=== PATIENT | female | born 1970 | race Caucasian/White ===

== ENCOUNTER 2020-09-06 15:06 | Inpatient (IN) ==
[2020-09-06] MEDS ORDERED: *HR* OxyCODONE Immed Rel 5 MG TABLET PO PRN (22:51)
[2020-09-06] MEDS ORDERED: *HR* Dextrose 50 % in Water (Vial) 50 ML VIAL IVP PRN (23:00)
[2020-09-06] MEDS ORDERED: D5% in Water 1,000 ML IVC PRN (23:00)
[2020-09-06] MEDS ORDERED: Dextrose Gel 15 GM/37.5 ML TUBE PO PRN ×2 (23:00)
[2020-09-07] MEDS: *HR* Enoxaparin 40 MG/0.4 ML SYRINGE SQ SCH (06:06)
[2020-09-07 06:14] LABS: Basophils # 0.1 K/mcL (0.0-0.2); Basophils % 0.9 %; Eosinophils # 0.2 K/mcL (0.0-0.6); Eosinophils % 1.7 %; Hematocrit 36.9 % (35.3-44.9); Hemoglobin 11.4 g/dL (11.5-15.4); Immature Granulocytes % 1.6 % (0-4); Lymphocytes # 3.5 K/mcL (0.6-4.6); Lymphocytes % 31.8 %; Mean Corpuscular HGB Conc 30.9 g/dL (31.6-35.5); Mean Corpuscular Hemoglobin 27.6 pg (28.0-33.3); Mean Corpuscular Volume 89.3 fL (83.0-100.0); Mean Platelet Volume 12.1 fL (9.4-12.4); Monocytes # 0.8 K/mcL (0.0-1.3); Monocytes % 7.3 %; Neutrophils # 6.2 K/mcL (1.6-8.9); Platelet Count 191 K/mcL (140-400); Red Blood Count 4.13 M/mcL (3.82-4.97); Red Cell Distribution Width 16.1 % (11.5-14.5); Segmented Neutrophils % 56.7 %
[2020-09-07 07:18] LABS: Calcium 8.7 mg/dL (8.6-10.3); Potassium 4.6 mEq/L (3.5-5.1)
[2020-09-07] MEDS: Aspirin Enteric Coated 81 MG Tablet PO SCH (09:21)
[2020-09-07] MEDS: SODIUM ZIRCONIUM CYCLOSILICATE 5 GM POWD.PACK PO SCH (09:21)
[2020-09-07] MEDS: amLODIPine 5 MG TABLET PO SCH (09:21)
[2020-09-07] MEDS: *HR* Metformin 500 MG TABLET PO SCH ×2 (09:21→18:12)
[2020-09-07] MEDS: carvediloL 6.25 MG TABLET PO SCH ×2 (09:22→18:12)
[2020-09-07] MEDS: lisinopriL 20 MG TABLET PO SCH ×2 (09:23→18:13)
[2020-09-07] MEDS: Insulin LISPRO 300 UNITS/3 ML VIAL SUBQ SCH ×3 (12:14→18:13)
[2020-09-07] MEDS: *HR* OxyCODONE Immed Rel 5 MG TABLET PO PRN ×2 (14:45→20:47)
[2020-09-07] MEDS: Insulin DETEMIR 100 UNIT/ML X5UNITS SUBQ SCH (20:48)
[2020-09-08] MEDS: *HR* Enoxaparin 40 MG/0.4 ML SYRINGE SQ SCH (06:08)
[2020-09-08] MEDS: *HR* OxyCODONE Immed Rel 5 MG TABLET PO PRN (06:11)
[2020-09-08] MEDS: lisinopriL 20 MG TABLET PO SCH ×2 (09:16→17:55)
[2020-09-08] MEDS: carvediloL 6.25 MG TABLET PO SCH ×2 (09:16→17:54)
[2020-09-08] MEDS: Aspirin Enteric Coated 81 MG Tablet PO SCH (09:16)
[2020-09-08] MEDS: *HR* Metformin 500 MG TABLET PO SCH ×2 (09:17→17:55)
[2020-09-08] MEDS: amLODIPine 5 MG TABLET PO SCH (09:17)
[2020-09-08] MEDS: SODIUM ZIRCONIUM CYCLOSILICATE 5 GM POWD.PACK PO SCH (09:17)
[2020-09-08] MEDS: Insulin LISPRO 300 UNITS/3 ML VIAL SUBQ SCH ×3 (09:22→17:56)
[2020-09-08] MEDS: *HR* OxyCODONE/APAP 7.5/325 TABLET PO PRN ×2 (10:10→19:01)
[2020-09-08] MEDS: tiZANidine 4 MG TABLET PO PRN (12:18)
[2020-09-08] MEDS: Insulin DETEMIR 100 UNIT/ML X5UNITS SUBQ SCH (21:12)
[2020-09-09] MEDS: *HR* OxyCODONE Immed Rel 5 MG TABLET PO PRN ×3 (03:30→17:18)
[2020-09-09] MEDS: *HR* Enoxaparin 40 MG/0.4 ML SYRINGE SQ SCH (05:51)
[2020-09-09] MEDS: carvediloL 6.25 MG TABLET PO SCH ×2 (08:07→17:18)
[2020-09-09] MEDS: Aspirin Enteric Coated 81 MG Tablet PO SCH (08:07)
[2020-09-09] MEDS: SODIUM ZIRCONIUM CYCLOSILICATE 5 GM POWD.PACK PO SCH (08:07)
[2020-09-09] MEDS: lisinopriL 20 MG TABLET PO SCH ×2 (08:07→17:18)
[2020-09-09] MEDS: amLODIPine 5 MG TABLET PO SCH (08:07)
[2020-09-09] MEDS: *HR* Metformin 500 MG TABLET PO SCH ×2 (08:07→17:18)
[2020-09-09] MEDS: Insulin LISPRO 300 UNITS/3 ML VIAL SUBQ SCH ×3 (08:08→17:20)
[2020-09-09] MEDS: Insulin DETEMIR 100 UNIT/ML X5UNITS SUBQ SCH (20:28)
[2020-09-09] MEDS: tiZANidine 4 MG TABLET PO PRN (20:39)
[2020-09-10] MEDS: *HR* OxyCODONE/APAP 7.5/325 TABLET PO PRN (00:32)
[2020-09-10] MEDS: *HR* Enoxaparin 40 MG/0.4 ML SYRINGE SQ SCH (06:13)
[2020-09-10] MEDS: Aspirin Enteric Coated 81 MG Tablet PO SCH (09:03)
[2020-09-10] MEDS: carvediloL 6.25 MG TABLET PO SCH ×2 (09:03→16:53)
[2020-09-10] MEDS: *HR* OxyCODONE Immed Rel 5 MG TABLET PO PRN ×3 (09:03→20:43)
[2020-09-10] MEDS: lisinopriL 20 MG TABLET PO SCH ×2 (09:03→16:52)
[2020-09-10] MEDS: *HR* Metformin 500 MG TABLET PO SCH ×2 (09:03→16:53)
[2020-09-10] MEDS: SODIUM ZIRCONIUM CYCLOSILICATE 5 GM POWD.PACK PO SCH (09:04)
[2020-09-10] MEDS: amLODIPine 5 MG TABLET PO SCH (09:04)
[2020-09-10] MEDS: Insulin LISPRO 300 UNITS/3 ML VIAL SUBQ SCH ×3 (09:04→16:52)
[2020-09-10] MEDS: Insulin DETEMIR 100 UNIT/ML X5UNITS SUBQ SCH (20:43)
[2020-09-10] MEDS: Sennosides 8.6 MG TABLET PO SCH (20:43)
[2020-09-11] MEDS: *HR* OxyCODONE Immed Rel 5 MG TABLET PO PRN ×2 (01:55→21:05)
[2020-09-11] MEDS: *HR* Enoxaparin 40 MG/0.4 ML SYRINGE SQ SCH (05:02)
[2020-09-11] MEDS: *HR* OxyCODONE/APAP 7.5/325 TABLET PO PRN ×2 (05:02→11:06)
[2020-09-11] MEDS: SODIUM ZIRCONIUM CYCLOSILICATE 5 GM POWD.PACK PO SCH (08:10)
[2020-09-11] MEDS: polyethylene glycoL 3350 17 GM POWD.PACK PO SCH (08:10)
[2020-09-11] MEDS: *HR* Metformin 500 MG TABLET PO SCH ×2 (08:13→16:29)
[2020-09-11] MEDS: tiZANidine 4 MG TABLET PO PRN ×2 (08:13→16:29)
[2020-09-11] MEDS: Aspirin Enteric Coated 81 MG Tablet PO SCH (08:13)
[2020-09-11] MEDS: lisinopriL 20 MG TABLET PO SCH ×2 (08:13→16:29)
[2020-09-11] MEDS: carvediloL 6.25 MG TABLET PO SCH ×2 (08:13→16:29)
[2020-09-11] MEDS: Sennosides 8.6 MG TABLET PO SCH ×2 (08:13→21:04)
[2020-09-11] MEDS: amLODIPine 5 MG TABLET PO SCH (08:13)
[2020-09-11] MEDS: Insulin LISPRO 300 UNITS/3 ML VIAL SUBQ SCH ×4 (08:19→21:05)
[2020-09-11] MEDS ORDERED: D5% in Water 1,000 ML IVC PRN (14:41)
[2020-09-11] MEDS ORDERED: *HR* Dextrose 50 % in Water (Vial) 50 ML VIAL IVP PRN (14:41)
[2020-09-11] MEDS ORDERED: Dextrose Gel 15 GM/37.5 ML TUBE PO PRN ×2 (14:41)
[2020-09-11] MEDS: Insulin DETEMIR 100 UNIT/ML X5UNITS SUBQ SCH (21:05)
[2020-09-12 04:35] LABS: Hematocrit 36.2 % (35.3-44.9); Hemoglobin 11.1 g/dL (11.5-15.4); Mean Corpuscular HGB Conc 30.7 g/dL (31.6-35.5); Mean Corpuscular Hemoglobin 27.4 pg (28.0-33.3); Mean Corpuscular Volume 89.4 fL (83.0-100.0); Mean Platelet Volume 12.1 fL (9.4-12.4); Platelet Count 185 K/mcL (140-400); Red Blood Count 4.05 M/mcL (3.82-4.97); Red Cell Distribution Width 16.1 % (11.5-14.5); White Blood Count 8.8 K/mcL (4.3-11.1)
[2020-09-12] MEDS: *HR* Enoxaparin 40 MG/0.4 ML SYRINGE SQ SCH (04:53)
[2020-09-12 04:54] LABS: Albumin 3.3 g/dL (3.5-5.7); Albumin/Globulin Ratio 0.9 (1.1-2.2); Bilirubin,Total 0.3 mg/dL (0.3-1.0); Calcium 9.1 mg/dL (8.6-10.3); Globulin 3.7 g/dL (2.4-3.5); Magnesium 1.7 mg/dL (1.6-2.6); Potassium 4.7 mEq/L (3.5-5.1)
[2020-09-12] MEDS: *HR* OxyCODONE Immed Rel 5 MG TABLET PO PRN ×2 (04:54→20:18)
[2020-09-12] MEDS: Insulin LISPRO 300 UNITS/3 ML VIAL SUBQ SCH ×4 (07:49→20:18)
[2020-09-12] MEDS: *HR* Metformin 500 MG TABLET PO SCH ×2 (08:14→17:05)
[2020-09-12] MEDS: carvediloL 6.25 MG TABLET PO SCH ×2 (08:14→17:05)
[2020-09-12] MEDS: amLODIPine 5 MG TABLET PO SCH (08:14)
[2020-09-12] MEDS: lisinopriL 20 MG TABLET PO SCH ×2 (08:14→17:05)
[2020-09-12] MEDS: Aspirin Enteric Coated 81 MG Tablet PO SCH (08:14)
[2020-09-12] MEDS: polyethylene glycoL 3350 17 GM POWD.PACK PO SCH (08:15)
[2020-09-12] MEDS: SODIUM ZIRCONIUM CYCLOSILICATE 5 GM POWD.PACK PO SCH (08:15)
[2020-09-12] MEDS: Sennosides 8.6 MG TABLET PO SCH ×2 (08:15→20:18)
[2020-09-12] MEDS: *HR* OxyCODONE/APAP 7.5/325 TABLET PO PRN ×2 (09:19→17:05)
[2020-09-12] MEDS: Insulin DETEMIR 100 UNIT/ML X5UNITS SUBQ SCH (20:18)
[2020-09-13] MEDS: *HR* OxyCODONE Immed Rel 5 MG TABLET PO PRN ×3 (00:36→20:42)
[2020-09-13] MEDS: *HR* Enoxaparin 40 MG/0.4 ML SYRINGE SQ SCH (05:26)
[2020-09-13] MEDS: Insulin LISPRO 300 UNITS/3 ML VIAL SUBQ SCH ×4 (07:59→20:42)
[2020-09-13] MEDS: Aspirin Enteric Coated 81 MG Tablet PO SCH (07:59)
[2020-09-13] MEDS: lisinopriL 20 MG TABLET PO SCH ×2 (08:00→17:35)
[2020-09-13] MEDS: amLODIPine 5 MG TABLET PO SCH (08:00)
[2020-09-13] MEDS: Sennosides 8.6 MG TABLET PO SCH ×2 (08:00→20:42)
[2020-09-13] MEDS: polyethylene glycoL 3350 17 GM POWD.PACK PO SCH (08:00)
[2020-09-13] MEDS: carvediloL 6.25 MG TABLET PO SCH ×2 (08:00→17:35)
[2020-09-13] MEDS: SODIUM ZIRCONIUM CYCLOSILICATE 5 GM POWD.PACK PO SCH (08:00)
[2020-09-13] MEDS: *HR* Metformin 500 MG TABLET PO SCH ×2 (08:00→17:35)
[2020-09-13] MEDS: *HR* OxyCODONE/APAP 7.5/325 TABLET PO PRN ×3 (09:37→23:19)
[2020-09-13] MEDS: Insulin DETEMIR 100 UNIT/ML X5UNITS SUBQ SCH (20:42)
[2020-09-14] MEDS: *HR* OxyCODONE Immed Rel 5 MG TABLET PO PRN ×3 (03:10→18:53)
[2020-09-14] MEDS: *HR* OxyCODONE/APAP 7.5/325 TABLET PO PRN ×2 (06:36→22:03)
[2020-09-14] MEDS: *HR* Enoxaparin 40 MG/0.4 ML SYRINGE SQ SCH (06:36)
[2020-09-14] MEDS: SODIUM ZIRCONIUM CYCLOSILICATE 5 GM POWD.PACK PO SCH (08:01)
[2020-09-14] MEDS: amLODIPine 5 MG TABLET PO SCH (08:04)
[2020-09-14] MEDS: *HR* Metformin 500 MG TABLET PO SCH ×2 (08:04→16:29)
[2020-09-14] MEDS: polyethylene glycoL 3350 17 GM POWD.PACK PO SCH (08:04)
[2020-09-14] MEDS: carvediloL 6.25 MG TABLET PO SCH ×2 (08:04→16:29)
[2020-09-14] MEDS: Sennosides 8.6 MG TABLET PO SCH ×2 (08:04→20:46)
[2020-09-14] MEDS: lisinopriL 20 MG TABLET PO SCH ×2 (08:04→16:29)
[2020-09-14] MEDS: Insulin LISPRO 300 UNITS/3 ML VIAL SUBQ SCH ×4 (08:04→20:43)
[2020-09-14] MEDS: Aspirin Enteric Coated 81 MG Tablet PO SCH (08:04)
[2020-09-14] MEDS: Insulin DETEMIR 100 UNIT/ML X5UNITS SUBQ SCH (20:45)
[2020-09-15] MEDS: *HR* OxyCODONE Immed Rel 5 MG TABLET PO PRN ×3 (02:15→17:01)
[2020-09-15] MEDS: *HR* OxyCODONE/APAP 7.5/325 TABLET PO PRN ×3 (05:20→21:19)
[2020-09-15] MEDS: *HR* Enoxaparin 40 MG/0.4 ML SYRINGE SQ SCH (05:21)
[2020-09-15] MEDS: *HR* Metformin 500 MG TABLET PO SCH ×2 (08:06→16:56)
[2020-09-15] MEDS: carvediloL 6.25 MG TABLET PO SCH ×2 (08:06→16:56)
[2020-09-15] MEDS: amLODIPine 5 MG TABLET PO SCH (08:06)
[2020-09-15] MEDS: Aspirin Enteric Coated 81 MG Tablet PO SCH (08:06)
[2020-09-15] MEDS: lisinopriL 20 MG TABLET PO SCH ×2 (08:07→16:56)
[2020-09-15] MEDS: Sennosides 8.6 MG TABLET PO SCH ×2 (08:07→21:20)
[2020-09-15] MEDS: polyethylene glycoL 3350 17 GM POWD.PACK PO SCH (08:07)
[2020-09-15] MEDS: SODIUM ZIRCONIUM CYCLOSILICATE 5 GM POWD.PACK PO SCH (08:07)
[2020-09-15] MEDS: Insulin LISPRO 300 UNITS/3 ML VIAL SUBQ SCH ×4 (08:23→21:13)
[2020-09-15] MEDS: Insulin DETEMIR 100 UNIT/ML X5UNITS SUBQ SCH (21:20)
[2020-09-16] MEDS: *HR* OxyCODONE/APAP 7.5/325 TABLET PO PRN ×4 (05:58→20:23)
[2020-09-16] MEDS: *HR* Enoxaparin 40 MG/0.4 ML SYRINGE SQ SCH (05:58)
[2020-09-16] MEDS: Insulin LISPRO 300 UNITS/3 ML VIAL SUBQ SCH ×4 (08:58→21:35)
[2020-09-16] MEDS: polyethylene glycoL 3350 17 GM POWD.PACK PO SCH (08:59)
[2020-09-16] MEDS: carvediloL 6.25 MG TABLET PO SCH ×2 (08:59→15:09)
[2020-09-16] MEDS: SODIUM ZIRCONIUM CYCLOSILICATE 5 GM POWD.PACK PO SCH (08:59)
[2020-09-16] MEDS: Aspirin Enteric Coated 81 MG Tablet PO SCH (09:00)
[2020-09-16] MEDS: Sennosides 8.6 MG TABLET PO SCH ×2 (09:00→22:12)
[2020-09-16] MEDS: lisinopriL 20 MG TABLET PO SCH ×2 (09:00→17:16)
[2020-09-16] MEDS: amLODIPine 5 MG TABLET PO SCH (09:00)
[2020-09-16] MEDS: *HR* Metformin 500 MG TABLET PO SCH ×2 (09:00→15:09)
[2020-09-16] MEDS: Insulin DETEMIR 100 UNIT/ML X5UNITS SUBQ SCH (21:36)
[2020-09-17] MEDS: *HR* OxyCODONE Immed Rel 5 MG TABLET PO PRN (05:48)
[2020-09-17] MEDS: *HR* Enoxaparin 40 MG/0.4 ML SYRINGE SQ SCH (06:00)
[2020-09-17] MEDS: Insulin LISPRO 300 UNITS/3 ML VIAL SUBQ SCH ×4 (10:21→20:44)
[2020-09-17] MEDS: lisinopriL 20 MG TABLET PO SCH ×2 (10:51→17:25)
[2020-09-17] MEDS: amLODIPine 5 MG TABLET PO SCH (10:51)
[2020-09-17] MEDS: *HR* Metformin 500 MG TABLET PO SCH ×2 (10:52→17:25)
[2020-09-17] MEDS: polyethylene glycoL 3350 17 GM POWD.PACK PO SCH (10:52)
[2020-09-17] MEDS: *HR* OxyCODONE/APAP 7.5/325 TABLET PO PRN ×3 (10:52→21:28)
[2020-09-17] MEDS: carvediloL 6.25 MG TABLET PO SCH ×2 (10:52→17:26)
[2020-09-17] MEDS: SODIUM ZIRCONIUM CYCLOSILICATE 5 GM POWD.PACK PO SCH (10:52)
[2020-09-17] MEDS: Aspirin Enteric Coated 81 MG Tablet PO SCH (10:52)
[2020-09-17] MEDS: Sennosides 8.6 MG TABLET PO SCH ×2 (10:52→20:56)
[2020-09-17] MEDS: tiZANidine 4 MG TABLET PO PRN (20:56)
[2020-09-17] MEDS: Insulin DETEMIR 100 UNIT/ML X5UNITS SUBQ SCH (20:57)
[2020-09-18 04:50] LABS: Basophils # 0.1 K/mcL (0.0-0.2); Basophils % 0.8 %; Eosinophils # 0.2 K/mcL (0.0-0.6); Eosinophils % 2.8 %; Hematocrit 35.9 % (35.3-44.9); Immature Granulocytes % 0.4 % (0-4); Lymphocytes # 2.3 K/mcL (0.6-4.6); Lymphocytes % 30.6 %; Mean Corpuscular HGB Conc 30.6 g/dL (31.6-35.5); Mean Corpuscular Hemoglobin 27.8 pg (28.0-33.3); Mean Corpuscular Volume 90.7 fL (83.0-100.0); Mean Platelet Volume 12.1 fL (9.4-12.4); Monocytes # 0.7 K/mcL (0.0-1.3); Monocytes % 8.9 %; Neutrophils # 4.2 K/mcL (1.6-8.9); Platelet Count 184 K/mcL (140-400); Red Blood Count 3.96 M/mcL (3.82-4.97); Red Cell Distribution Width 16.7 % (11.5-14.5); Segmented Neutrophils % 56.5 %; White Blood Count 7.4 K/mcL (4.3-11.1)
[2020-09-18 04:56] LABS: Platelet Estimate Normal (Normal)
[2020-09-18 05:04] LABS: Calcium 9.6 mg/dL (8.6-10.3); Potassium 4.9 mEq/L (3.5-5.1)
[2020-09-18] MEDS: *HR* Enoxaparin 40 MG/0.4 ML SYRINGE SQ SCH (05:18)
[2020-09-18] MEDS: *HR* OxyCODONE/APAP 7.5/325 TABLET PO PRN ×3 (05:18→15:05)
[2020-09-18] MEDS: Insulin LISPRO 300 UNITS/3 ML VIAL SUBQ SCH ×4 (07:30→19:51)
[2020-09-18] MEDS: SODIUM ZIRCONIUM CYCLOSILICATE 5 GM POWD.PACK PO SCH (09:10)
[2020-09-18] MEDS: amLODIPine 5 MG TABLET PO SCH (09:11)
[2020-09-18] MEDS: Aspirin Enteric Coated 81 MG Tablet PO SCH (09:11)
[2020-09-18] MEDS: lisinopriL 20 MG TABLET PO SCH ×2 (09:11→17:07)
[2020-09-18] MEDS: polyethylene glycoL 3350 17 GM POWD.PACK PO SCH (09:11)
[2020-09-18] MEDS: Sennosides 8.6 MG TABLET PO SCH ×2 (09:12→20:25)
[2020-09-18] MEDS: *HR* Metformin 500 MG TABLET PO SCH ×2 (09:12→17:07)
[2020-09-18] MEDS: carvediloL 6.25 MG TABLET PO SCH ×2 (09:13→17:09)
[2020-09-18] MEDS: Insulin DETEMIR 100 UNIT/ML X5UNITS SUBQ SCH (20:25)
[2020-09-18] MEDS: tiZANidine 4 MG TABLET PO PRN (20:25)
[2020-09-18] MEDS: *HR* OxyCODONE Immed Rel 5 MG TABLET PO PRN (20:26)
[2020-09-19] MEDS: *HR* OxyCODONE Immed Rel 5 MG TABLET PO PRN (04:07)
[2020-09-19] MEDS: *HR* Enoxaparin 40 MG/0.4 ML SYRINGE SQ SCH (04:07)
[2020-09-19] MEDS: Insulin LISPRO 300 UNITS/3 ML VIAL SUBQ SCH ×4 (07:36→19:40)
[2020-09-19] MEDS: SODIUM ZIRCONIUM CYCLOSILICATE 5 GM POWD.PACK PO SCH (08:22)
[2020-09-19] MEDS: tiZANidine 4 MG TABLET PO PRN ×2 (08:22→19:36)
[2020-09-19] MEDS: carvediloL 6.25 MG TABLET PO SCH ×2 (08:23→18:12)
[2020-09-19] MEDS: lisinopriL 20 MG TABLET PO SCH ×2 (08:23→18:12)
[2020-09-19] MEDS: amLODIPine 5 MG TABLET PO SCH (08:23)
[2020-09-19] MEDS: Aspirin Enteric Coated 81 MG Tablet PO SCH (08:23)
[2020-09-19] MEDS: *HR* Metformin 500 MG TABLET PO SCH ×2 (08:23→18:12)
[2020-09-19] MEDS: Sennosides 8.6 MG TABLET PO SCH ×2 (08:28→19:37)
[2020-09-19] MEDS: polyethylene glycoL 3350 17 GM POWD.PACK PO SCH (08:28)
[2020-09-19] MEDS: *HR* OxyCODONE/APAP 7.5/325 TABLET PO PRN ×3 (10:14→19:36)
[2020-09-19] MEDS: Insulin DETEMIR 100 UNIT/ML X5UNITS SUBQ SCH (19:38)
[2020-09-20] MEDS: *HR* OxyCODONE/APAP 7.5/325 TABLET PO PRN ×5 (02:23→23:22)
[2020-09-20] MEDS: *HR* Enoxaparin 40 MG/0.4 ML SYRINGE SQ SCH (06:31)
[2020-09-20] MEDS: Insulin LISPRO 300 UNITS/3 ML VIAL SUBQ SCH ×4 (08:12→20:00)
[2020-09-20] MEDS: Aspirin Enteric Coated 81 MG Tablet PO SCH (08:50)
[2020-09-20] MEDS: *HR* Metformin 500 MG TABLET PO SCH ×2 (08:50→17:10)
[2020-09-20] MEDS: carvediloL 6.25 MG TABLET PO SCH ×2 (08:50→17:09)
[2020-09-20] MEDS: lisinopriL 20 MG TABLET PO SCH ×2 (08:50→17:10)
[2020-09-20] MEDS: amLODIPine 5 MG TABLET PO SCH (08:50)
[2020-09-20] MEDS: SODIUM ZIRCONIUM CYCLOSILICATE 5 GM POWD.PACK PO SCH (08:51)
[2020-09-20] MEDS: tiZANidine 4 MG TABLET PO PRN ×2 (08:51→20:12)
[2020-09-20] MEDS: Sennosides 8.6 MG TABLET PO SCH ×2 (08:52→20:11)
[2020-09-20] MEDS: polyethylene glycoL 3350 17 GM POWD.PACK PO SCH (08:52)
[2020-09-20] MEDS: *HR* OxyCODONE Immed Rel 5 MG TABLET PO PRN (20:11)
[2020-09-20] MEDS: Insulin DETEMIR 100 UNIT/ML X5UNITS SUBQ SCH (20:12)
[2020-09-21] MEDS: *HR* OxyCODONE Immed Rel 5 MG TABLET PO PRN ×2 (05:15→12:39)
[2020-09-21] MEDS: *HR* Enoxaparin 40 MG/0.4 ML SYRINGE SQ SCH (05:16)
[2020-09-21] MEDS: SODIUM ZIRCONIUM CYCLOSILICATE 5 GM POWD.PACK PO SCH (08:14)
[2020-09-21] MEDS: lisinopriL 20 MG TABLET PO SCH ×2 (08:14→17:03)
[2020-09-21] MEDS: amLODIPine 5 MG TABLET PO SCH (08:14)
[2020-09-21] MEDS: carvediloL 6.25 MG TABLET PO SCH ×2 (08:14→17:02)
[2020-09-21] MEDS: Aspirin Enteric Coated 81 MG Tablet PO SCH (08:14)
[2020-09-21] MEDS: Sennosides 8.6 MG TABLET PO SCH ×2 (08:14→21:19)
[2020-09-21] MEDS: *HR* Metformin 500 MG TABLET PO SCH ×2 (08:14→17:02)
[2020-09-21] MEDS: polyethylene glycoL 3350 17 GM POWD.PACK PO SCH (08:15)
[2020-09-21] MEDS: Insulin LISPRO 300 UNITS/3 ML VIAL SUBQ SCH ×4 (08:21→20:55)
[2020-09-21] MEDS: tiZANidine 4 MG TABLET PO PRN (08:21)
[2020-09-21] MEDS: *HR* OxyCODONE/APAP 7.5/325 TABLET PO PRN ×2 (17:02→21:16)
[2020-09-21] MEDS: Insulin DETEMIR 100 UNIT/ML X5UNITS SUBQ SCH (21:17)
[2020-09-22] MEDS: *HR* Enoxaparin 40 MG/0.4 ML SYRINGE SQ SCH (05:02)
[2020-09-22] MEDS: *HR* OxyCODONE/APAP 7.5/325 TABLET PO PRN ×3 (05:03→18:56)
[2020-09-22] MEDS: Insulin LISPRO 300 UNITS/3 ML VIAL SUBQ SCH ×4 (07:37→21:27)
[2020-09-22] MEDS: SODIUM ZIRCONIUM CYCLOSILICATE 5 GM POWD.PACK PO SCH (08:18)
[2020-09-22] MEDS: Aspirin Enteric Coated 81 MG Tablet PO SCH (08:21)
[2020-09-22] MEDS: carvediloL 6.25 MG TABLET PO SCH ×2 (08:21→16:11)
[2020-09-22] MEDS: amLODIPine 5 MG TABLET PO SCH (08:21)
[2020-09-22] MEDS: tiZANidine 4 MG TABLET PO PRN ×2 (08:21→16:12)
[2020-09-22] MEDS: lisinopriL 20 MG TABLET PO SCH ×2 (08:21→16:11)
[2020-09-22] MEDS: *HR* Metformin 500 MG TABLET PO SCH ×2 (08:21→16:10)
[2020-09-22] MEDS: Sennosides 8.6 MG TABLET PO SCH ×2 (08:22→21:41)
[2020-09-22] MEDS: polyethylene glycoL 3350 17 GM POWD.PACK PO SCH (08:22)
[2020-09-22] MEDS: Insulin DETEMIR 100 UNIT/ML X5UNITS SUBQ SCH (21:44)
[2020-09-23] MEDS: *HR* OxyCODONE/APAP 7.5/325 TABLET PO PRN ×4 (05:14→20:16)
[2020-09-23] MEDS: *HR* Enoxaparin 40 MG/0.4 ML SYRINGE SQ SCH (05:15)
[2020-09-23] MEDS: Insulin LISPRO 300 UNITS/3 ML VIAL SUBQ SCH ×4 (07:44→19:54)
[2020-09-23] MEDS: carvediloL 6.25 MG TABLET PO SCH ×2 (08:13→17:06)
[2020-09-23] MEDS: Aspirin Enteric Coated 81 MG Tablet PO SCH (08:13)
[2020-09-23] MEDS: SODIUM ZIRCONIUM CYCLOSILICATE 5 GM POWD.PACK PO SCH (08:13)
[2020-09-23] MEDS: amLODIPine 5 MG TABLET PO SCH (08:14)
[2020-09-23] MEDS: lisinopriL 20 MG TABLET PO SCH ×2 (08:14→17:06)
[2020-09-23] MEDS: *HR* Metformin 500 MG TABLET PO SCH ×2 (08:14→17:06)
[2020-09-23] MEDS: polyethylene glycoL 3350 17 GM POWD.PACK PO SCH (08:15)
[2020-09-23] MEDS: Sennosides 8.6 MG TABLET PO SCH ×2 (08:15→20:16)
[2020-09-23] MEDS: Insulin DETEMIR 100 UNIT/ML X5UNITS SUBQ SCH (20:16)
[2020-09-24] MEDS: *HR* OxyCODONE/APAP 7.5/325 TABLET PO PRN ×4 (00:08→17:29)
[2020-09-24] MEDS: tiZANidine 4 MG TABLET PO PRN ×3 (00:08→20:17)
[2020-09-24] MEDS: *HR* Enoxaparin 40 MG/0.4 ML SYRINGE SQ SCH (06:14)
[2020-09-24] MEDS: lisinopriL 20 MG TABLET PO SCH ×2 (08:47→17:28)
[2020-09-24] MEDS: *HR* Metformin 500 MG TABLET PO SCH ×2 (08:47→17:28)
[2020-09-24] MEDS: Aspirin Enteric Coated 81 MG Tablet PO SCH (08:47)
[2020-09-24] MEDS: amLODIPine 5 MG TABLET PO SCH (08:48)
[2020-09-24] MEDS: Insulin LISPRO 300 UNITS/3 ML VIAL SUBQ SCH ×4 (08:48→20:08)
[2020-09-24] MEDS: SODIUM ZIRCONIUM CYCLOSILICATE 5 GM POWD.PACK PO SCH ×2 (08:51→08:53)
[2020-09-24] MEDS: polyethylene glycoL 3350 17 GM POWD.PACK PO SCH (09:02)
[2020-09-24] MEDS: Sennosides 8.6 MG TABLET PO SCH ×2 (09:02→20:17)
[2020-09-24] MEDS: carvediloL 6.25 MG TABLET PO SCH ×2 (09:03→17:58)
[2020-09-24] MEDS: hydrALAZINE 10 MG TABLET PO SCH ×2 (13:08→20:17)
[2020-09-24] MEDS: carvediloL 25 MG TABLET PO SCH (17:28)
[2020-09-24] MEDS: Insulin DETEMIR 100 UNIT/ML X5UNITS SUBQ SCH (20:17)
[2020-09-25] MEDS: *HR* OxyCODONE/APAP 7.5/325 TABLET PO PRN ×4 (03:09→17:13)
[2020-09-25 05:14] LABS: Albumin 3.5 g/dL (3.5-5.7); Albumin/Globulin Ratio 0.9 (1.1-2.2); Bilirubin,Total 0.3 mg/dL (0.3-1.0); Calcium 9.4 mg/dL (8.6-10.3); Magnesium 1.9 mg/dL (1.6-2.6); Potassium 4.4 mEq/L (3.5-5.1); Total Protein 7.5 g/dL (6.4-8.9)
[2020-09-25 05:34] LABS: Hematocrit 34.4 % (35.3-44.9); Hemoglobin 10.6 g/dL (11.5-15.4); Mean Corpuscular HGB Conc 30.8 g/dL (31.6-35.5); Mean Platelet Volume 11.8 fL (9.4-12.4); Platelet Count 169 K/mcL (140-400); Red Blood Count 3.78 M/mcL (3.82-4.97); Red Cell Distribution Width 17.1 % (11.5-14.5); White Blood Count 8.6 K/mcL (4.3-11.1)
[2020-09-25] MEDS: *HR* Enoxaparin 40 MG/0.4 ML SYRINGE SQ SCH (05:46)
[2020-09-25] MEDS: Insulin LISPRO 300 UNITS/3 ML VIAL SUBQ SCH ×4 (08:24→20:08)
[2020-09-25] MEDS: hydrALAZINE 10 MG TABLET PO SCH ×3 (08:46→20:12)
[2020-09-25] MEDS: Aspirin Enteric Coated 81 MG Tablet PO SCH (08:46)
[2020-09-25] MEDS: lisinopriL 20 MG TABLET PO SCH ×2 (08:46→17:06)
[2020-09-25] MEDS: amLODIPine 5 MG TABLET PO SCH (08:46)
[2020-09-25] MEDS: SODIUM ZIRCONIUM CYCLOSILICATE 5 GM POWD.PACK PO SCH (08:47)
[2020-09-25] MEDS: Sennosides 8.6 MG TABLET PO SCH ×2 (08:47→20:13)
[2020-09-25] MEDS: polyethylene glycoL 3350 17 GM POWD.PACK PO SCH (08:47)
[2020-09-25] MEDS: carvediloL 25 MG TABLET PO SCH ×2 (08:47→17:07)
[2020-09-25] MEDS: *HR* Metformin 500 MG TABLET PO SCH ×2 (08:47→17:07)
[2020-09-25] MEDS: tiZANidine 4 MG TABLET PO PRN (20:12)
[2020-09-25] MEDS: Insulin DETEMIR 100 UNIT/ML X5UNITS SUBQ SCH (20:13)
[2020-09-26] MEDS: *HR* OxyCODONE/APAP 7.5/325 TABLET PO PRN ×4 (02:32→18:50)
[2020-09-26] MEDS: tiZANidine 4 MG TABLET PO PRN ×2 (05:09→20:16)
[2020-09-26] MEDS: *HR* Enoxaparin 40 MG/0.4 ML SYRINGE SQ SCH (05:10)
[2020-09-26] MEDS: Insulin LISPRO 300 UNITS/3 ML VIAL SUBQ SCH ×4 (07:53→20:07)
[2020-09-26] MEDS: amLODIPine 5 MG TABLET PO SCH (07:58)
[2020-09-26] MEDS: *HR* Metformin 500 MG TABLET PO SCH ×2 (07:58→17:27)
[2020-09-26] MEDS: carvediloL 25 MG TABLET PO SCH ×2 (07:58→17:27)
[2020-09-26] MEDS: hydrALAZINE 10 MG TABLET PO SCH ×2 (07:58→14:22)
[2020-09-26] MEDS: lisinopriL 20 MG TABLET PO SCH ×2 (07:58→17:28)
[2020-09-26] MEDS: Aspirin Enteric Coated 81 MG Tablet PO SCH (08:00)
[2020-09-26] MEDS: SODIUM ZIRCONIUM CYCLOSILICATE 5 GM POWD.PACK PO SCH (08:00)
[2020-09-26] MEDS: polyethylene glycoL 3350 17 GM POWD.PACK PO SCH (08:00)
[2020-09-26] MEDS: Sennosides 8.6 MG TABLET PO SCH ×2 (08:01→20:19)
[2020-09-26] MEDS: hydrALAZINE 25 MG TABLET PO SCH (20:16)
[2020-09-26] MEDS: Insulin DETEMIR 100 UNIT/ML X5UNITS SUBQ SCH (20:16)
[2020-09-27] MEDS: *HR* OxyCODONE/APAP 7.5/325 TABLET PO PRN ×3 (04:55→18:30)
[2020-09-27] MEDS: *HR* Enoxaparin 40 MG/0.4 ML SYRINGE SQ SCH (04:56)
[2020-09-27] MEDS: Insulin LISPRO 300 UNITS/3 ML VIAL SUBQ SCH ×4 (07:35→20:36)
[2020-09-27] MEDS: Sennosides 8.6 MG TABLET PO SCH (08:06)
[2020-09-27] MEDS: lisinopriL 20 MG TABLET PO SCH ×2 (08:06→17:01)
[2020-09-27] MEDS: polyethylene glycoL 3350 17 GM POWD.PACK PO SCH (08:06)
[2020-09-27] MEDS: SODIUM ZIRCONIUM CYCLOSILICATE 5 GM POWD.PACK PO SCH (08:06)
[2020-09-27] MEDS: *HR* Metformin 500 MG TABLET PO SCH ×2 (08:08→17:01)
[2020-09-27] MEDS: Aspirin Enteric Coated 81 MG Tablet PO SCH (08:08)
[2020-09-27] MEDS: amLODIPine 5 MG TABLET PO SCH (08:09)
[2020-09-27] MEDS: hydrALAZINE 25 MG TABLET PO SCH ×3 (08:09→20:37)
[2020-09-27] MEDS: tiZANidine 4 MG TABLET PO PRN ×2 (08:09→20:36)
[2020-09-27] MEDS: carvediloL 25 MG TABLET PO SCH ×2 (08:12→17:01)
[2020-09-27] MEDS ORDERED: polyethylene glycoL 3350 17 GM POWD.PACK PO PRN (12:01)
[2020-09-27] MEDS ORDERED: Sennosides 8.6 MG TABLET PO PRN (12:01)
[2020-09-27] MEDS: Insulin DETEMIR 100 UNIT/ML X5UNITS SUBQ SCH (20:37)
[2020-09-28] MEDS: *HR* OxyCODONE/APAP 7.5/325 TABLET PO PRN ×5 (04:04→23:32)
[2020-09-28] MEDS: *HR* Enoxaparin 40 MG/0.4 ML SYRINGE SQ SCH (04:05)
[2020-09-28] MEDS: Insulin LISPRO 300 UNITS/3 ML VIAL SUBQ SCH ×4 (07:34→21:06)
[2020-09-28] MEDS: carvediloL 25 MG TABLET PO SCH ×3 (07:35→16:26)
[2020-09-28] MEDS: hydrALAZINE 25 MG TABLET PO SCH ×3 (08:44→23:32)
[2020-09-28] MEDS: *HR* Metformin 500 MG TABLET PO SCH ×2 (08:45→16:26)
[2020-09-28] MEDS: lisinopriL 20 MG TABLET PO SCH ×2 (08:45→16:26)
[2020-09-28] MEDS: amLODIPine 5 MG TABLET PO SCH (08:45)
[2020-09-28] MEDS: SODIUM ZIRCONIUM CYCLOSILICATE 5 GM POWD.PACK PO SCH (08:45)
[2020-09-28] MEDS: Aspirin Enteric Coated 81 MG Tablet PO SCH (08:45)
[2020-09-28] MEDS ORDERED: Artificial Tears SOLN 15 ML BOTTLE LEFT EYE PRN (16:23)
[2020-09-28] MEDS: tiZANidine 4 MG TABLET PO PRN (16:26)
[2020-09-28] MEDS: Insulin DETEMIR 100 UNIT/ML X5UNITS SUBQ SCH (21:18)
[2020-09-29] MEDS: *HR* OxyCODONE/APAP 7.5/325 TABLET PO PRN ×4 (05:47→21:07)
[2020-09-29] MEDS: *HR* Enoxaparin 40 MG/0.4 ML SYRINGE SQ SCH (05:47)
[2020-09-29] MEDS: hydrALAZINE 25 MG TABLET PO SCH ×3 (05:47→17:01)
[2020-09-29] MEDS: Insulin LISPRO 300 UNITS/3 ML VIAL SUBQ SCH ×4 (07:30→21:08)
[2020-09-29] MEDS: SODIUM ZIRCONIUM CYCLOSILICATE 5 GM POWD.PACK PO SCH (09:58)
[2020-09-29] MEDS: Aspirin Enteric Coated 81 MG Tablet PO SCH (09:59)
[2020-09-29] MEDS: amLODIPine 5 MG TABLET PO SCH (09:59)
[2020-09-29] MEDS: lisinopriL 20 MG TABLET PO SCH ×2 (09:59→17:01)
[2020-09-29] MEDS: *HR* Metformin 500 MG TABLET PO SCH ×2 (09:59→17:00)
[2020-09-29] MEDS: carvediloL 25 MG TABLET PO SCH ×2 (09:59→17:01)
[2020-09-29] MEDS: tiZANidine 4 MG TABLET PO PRN (17:00)
[2020-09-29] MEDS: Insulin DETEMIR 100 UNIT/ML X5UNITS SUBQ SCH (21:08)
[2020-09-30] MEDS: hydrALAZINE 25 MG TABLET PO SCH ×4 (00:59→17:20)
[2020-09-30] MEDS: *HR* OxyCODONE/APAP 7.5/325 TABLET PO PRN ×4 (01:00→22:20)
[2020-09-30] MEDS: tiZANidine 4 MG TABLET PO PRN ×2 (01:01→09:35)
[2020-09-30] MEDS: *HR* Enoxaparin 40 MG/0.4 ML SYRINGE SQ SCH (07:03)
[2020-09-30] MEDS: carvediloL 25 MG TABLET PO SCH ×2 (09:30→17:19)
[2020-09-30] MEDS: Aspirin Enteric Coated 81 MG Tablet PO SCH (09:30)
[2020-09-30] MEDS: SODIUM ZIRCONIUM CYCLOSILICATE 5 GM POWD.PACK PO SCH (09:30)
[2020-09-30] MEDS: amLODIPine 5 MG TABLET PO SCH (09:31)
[2020-09-30] MEDS: Insulin LISPRO 300 UNITS/3 ML VIAL SUBQ SCH ×4 (09:31→22:20)
[2020-09-30] MEDS: *HR* Metformin 500 MG TABLET PO SCH ×2 (09:31→17:19)
[2020-09-30] MEDS: lisinopriL 20 MG TABLET PO SCH ×2 (09:31→17:20)
[2020-09-30] MEDS: Insulin DETEMIR 100 UNIT/ML X5UNITS SUBQ SCH (22:20)
[2020-10-01] MEDS: hydrALAZINE 25 MG TABLET PO SCH ×5 (01:01→23:53)
[2020-10-01] MEDS: *HR* OxyCODONE/APAP 7.5/325 TABLET PO PRN ×5 (02:37→20:46)
[2020-10-01] MEDS: *HR* Enoxaparin 40 MG/0.4 ML SYRINGE SQ SCH (05:34)
[2020-10-01] MEDS: Insulin LISPRO 300 UNITS/3 ML VIAL SUBQ SCH ×4 (07:51→20:36)
[2020-10-01] MEDS: lisinopriL 20 MG TABLET PO SCH ×2 (08:57→17:09)
[2020-10-01] MEDS: tiZANidine 4 MG TABLET PO PRN ×2 (08:57→23:53)
[2020-10-01] MEDS: carvediloL 25 MG TABLET PO SCH ×2 (08:57→17:09)
[2020-10-01] MEDS: Aspirin Enteric Coated 81 MG Tablet PO SCH (08:57)
[2020-10-01] MEDS: SODIUM ZIRCONIUM CYCLOSILICATE 5 GM POWD.PACK PO SCH (08:57)
[2020-10-01] MEDS: amLODIPine 5 MG TABLET PO SCH (08:57)
[2020-10-01] MEDS: *HR* Metformin 500 MG TABLET PO SCH ×2 (13:07→17:10)
[2020-10-01] MEDS: Insulin DETEMIR 100 UNIT/ML X5UNITS SUBQ SCH (20:46)
[2020-10-02 04:36] LABS: Hematocrit 32.3 % (35.3-44.9); Hemoglobin 9.9 g/dL (11.5-15.4); Mean Corpuscular HGB Conc 30.7 g/dL (31.6-35.5); Mean Corpuscular Hemoglobin 27.9 pg (28.0-33.3); Mean Platelet Volume 11.9 fL (9.4-12.4); Platelet Count 151 K/mcL (140-400); Red Blood Count 3.55 M/mcL (3.82-4.97); Red Cell Distribution Width 16.7 % (11.5-14.5); White Blood Count 9.1 K/mcL (4.3-11.1)
[2020-10-02 04:52] LABS: BUN/Creatinine Ratio 33 (6-26); Blood Urea Nitrogen 36 mg/dL (6-20); Calcium 9.2 mg/dL (8.6-10.3); Carbon Dioxide 29 mEq/L (23-29); Chloride 102 mEq/L (98-107); Glucose 116 mg/dL (70-105); Magnesium 1.9 mg/dL (1.6-2.6); Osmolality,Calculated 295 (280-300); Potassium 4.1 mEq/L (3.5-5.1); Sodium 138 mEq/L (136-145); eGFR For African Americans > 60 (> 60); eGFR For Non-African Americans 54 (> 60)
[2020-10-02] MEDS: *HR* OxyCODONE/APAP 7.5/325 TABLET PO PRN ×4 (05:04→21:55)
[2020-10-02] MEDS: hydrALAZINE 25 MG TABLET PO SCH ×3 (05:04→16:44)
[2020-10-02] MEDS: *HR* Enoxaparin 40 MG/0.4 ML SYRINGE SQ SCH (05:04)
[2020-10-02] MEDS: lisinopriL 20 MG TABLET PO SCH ×2 (08:22→16:44)
[2020-10-02] MEDS: Aspirin Enteric Coated 81 MG Tablet PO SCH (08:22)
[2020-10-02] MEDS: *HR* Metformin 500 MG TABLET PO SCH ×2 (08:22→16:44)
[2020-10-02] MEDS: SODIUM ZIRCONIUM CYCLOSILICATE 5 GM POWD.PACK PO SCH (08:22)
[2020-10-02] MEDS: amLODIPine 5 MG TABLET PO SCH (08:24)
[2020-10-02] MEDS: carvediloL 25 MG TABLET PO SCH ×2 (08:24→16:44)
[2020-10-02] MEDS: Insulin LISPRO 300 UNITS/3 ML VIAL SUBQ SCH ×4 (08:24→21:56)
[2020-10-02] MEDS: tiZANidine 4 MG TABLET PO PRN (21:55)
[2020-10-02] MEDS: Insulin DETEMIR 100 UNIT/ML X5UNITS SUBQ SCH (21:56)
[2020-10-03] MEDS: hydrALAZINE 25 MG TABLET PO SCH ×5 (00:03→23:25)
[2020-10-03] MEDS: *HR* Enoxaparin 40 MG/0.4 ML SYRINGE SQ SCH (04:29)
[2020-10-03] MEDS: *HR* OxyCODONE/APAP 7.5/325 TABLET PO PRN ×4 (04:29→23:25)
[2020-10-03] MEDS: SODIUM ZIRCONIUM CYCLOSILICATE 5 GM POWD.PACK PO SCH (08:44)
[2020-10-03] MEDS: Aspirin Enteric Coated 81 MG Tablet PO SCH (08:44)
[2020-10-03] MEDS: lisinopriL 20 MG TABLET PO SCH ×2 (08:44→16:38)
[2020-10-03] MEDS: carvediloL 25 MG TABLET PO SCH ×2 (08:44→16:38)
[2020-10-03] MEDS: amLODIPine 5 MG TABLET PO SCH (08:45)
[2020-10-03] MEDS: tiZANidine 4 MG TABLET PO PRN (08:45)
[2020-10-03] MEDS: Insulin LISPRO 300 UNITS/3 ML VIAL SUBQ SCH ×4 (08:49→19:39)
[2020-10-03] MEDS: *HR* Metformin 500 MG TABLET PO SCH ×2 (08:49→16:38)
[2020-10-03] MEDS: Insulin DETEMIR 100 UNIT/ML X5UNITS SUBQ SCH (19:39)
[2020-10-04] MEDS: *HR* OxyCODONE/APAP 7.5/325 TABLET PO PRN ×4 (05:25→19:43)
[2020-10-04] MEDS: hydrALAZINE 25 MG TABLET PO SCH ×3 (05:25→17:15)
[2020-10-04] MEDS: *HR* Enoxaparin 40 MG/0.4 ML SYRINGE SQ SCH (05:26)
[2020-10-04] MEDS: Insulin LISPRO 300 UNITS/3 ML VIAL SUBQ SCH ×4 (10:08→20:03)
[2020-10-04] MEDS: SODIUM ZIRCONIUM CYCLOSILICATE 5 GM POWD.PACK PO SCH (10:14)
[2020-10-04] MEDS: amLODIPine 5 MG TABLET PO SCH (10:15)
[2020-10-04] MEDS: Aspirin Enteric Coated 81 MG Tablet PO SCH (10:15)
[2020-10-04] MEDS: lisinopriL 20 MG TABLET PO SCH ×2 (10:15→17:15)
[2020-10-04] MEDS: *HR* Metformin 500 MG TABLET PO SCH ×2 (10:16→15:21)
[2020-10-04] MEDS: carvediloL 25 MG TABLET PO SCH ×2 (10:16→15:21)
[2020-10-04] MEDS: Insulin DETEMIR 100 UNIT/ML X5UNITS SUBQ SCH (19:43)
[2020-10-05] MEDS: hydrALAZINE 25 MG TABLET PO SCH ×5 (01:47→23:03)
[2020-10-05] MEDS: *HR* OxyCODONE/APAP 7.5/325 TABLET PO PRN ×5 (01:47→20:30)
[2020-10-05] MEDS: *HR* Enoxaparin 40 MG/0.4 ML SYRINGE SQ SCH (06:18)
[2020-10-05] MEDS: SODIUM ZIRCONIUM CYCLOSILICATE 5 GM POWD.PACK PO SCH (10:08)
[2020-10-05] MEDS: lisinopriL 20 MG TABLET PO SCH ×2 (10:09→16:50)
[2020-10-05] MEDS: Aspirin Enteric Coated 81 MG Tablet PO SCH (10:09)
[2020-10-05] MEDS: carvediloL 25 MG TABLET PO SCH ×2 (10:09→15:43)
[2020-10-05] MEDS: amLODIPine 5 MG TABLET PO SCH (10:10)
[2020-10-05] MEDS: *HR* Metformin 500 MG TABLET PO SCH ×2 (10:10→15:43)
[2020-10-05] MEDS: Insulin LISPRO 300 UNITS/3 ML VIAL SUBQ SCH ×4 (10:10→20:30)
[2020-10-05] MEDS: Insulin DETEMIR 100 UNIT/ML X5UNITS SUBQ SCH (20:32)
[2020-10-05] MEDS: tiZANidine 4 MG TABLET PO PRN (23:06)
[2020-10-06] MEDS: *HR* OxyCODONE/APAP 7.5/325 TABLET PO PRN ×3 (02:59→13:59)
[2020-10-06] MEDS: hydrALAZINE 25 MG TABLET PO SCH ×4 (05:17→14:00)
[2020-10-06 07:06] VITALS: BP 132/66; PULSE 59; RESP 16; TEMP 98; O2SAT 94
[2020-10-06] MEDS: lisinopriL 20 MG TABLET PO SCH (07:41)
[2020-10-06] MEDS: *HR* Metformin 500 MG TABLET PO SCH (07:41)
[2020-10-06] MEDS: amLODIPine 5 MG TABLET PO SCH (07:41)
[2020-10-06] MEDS: Aspirin Enteric Coated 81 MG Tablet PO SCH (07:41)
[2020-10-06] MEDS: tiZANidine 4 MG TABLET PO PRN (07:42)
[2020-10-06] MEDS: carvediloL 25 MG TABLET PO SCH (07:42)
[2020-10-06] MEDS: Insulin LISPRO 300 UNITS/3 ML VIAL SUBQ SCH ×2 (07:46→12:59)
[2020-10-06] MEDS: SODIUM ZIRCONIUM CYCLOSILICATE 5 GM POWD.PACK PO SCH (09:17)
== END 2020-10-06 15:16 | disposition home health service (06) | DRG 57 ==
LOC: INPGRE 09-07 00:32
PROVIDERS: ADMIT Family Medicine; ATTEND Family Medicine

== ENCOUNTER 2021-07-04 11:25 | Inpatient (IN) ==
[2021-07-04] MEDS ORDERED: Dextrose 4 GM Chewable Tablets PO PRN ×2 (15:11)
[2021-07-04] MEDS ORDERED: D5% in Water 1,000 ML IVC PRN (15:11)
[2021-07-04] MEDS ORDERED: *HR* Dextrose 50 % in Water (Syg) 50 ML SYRINGE IVP PRN (15:11)
[2021-07-04] MEDS: carvediloL 6.25 MG TABLET PO SCH (16:53)
[2021-07-04] MEDS: Insulin LISPRO 300 UNITS/3 ML VIAL SUBQ SCH ×2 (16:54→21:00)
[2021-07-04] MEDS: *HR* OxyCODONE Immed Rel 5 MG TABLET PO PRN (17:49)
[2021-07-04] MEDS: lisinopriL 10 MG TABLET PO SCH (20:46)
[2021-07-04] MEDS: Apixaban 5 MG TABLET PO SCH (20:47)
[2021-07-04] MEDS ORDERED: Insulin DETEMIR 100 UNIT/ML per UNIT SUBQ ONE (21:00)
[2021-07-05] MEDS: *HR* OxyCODONE Immed Rel 5 MG TABLET PO PRN ×4 (02:15→22:02)
[2021-07-05 05:55] LABS: Basophils # 0.1 K/mcL (0.0-0.2); Basophils % 0.9 %; Eosinophils # 0.2 K/mcL (0.0-0.6); Eosinophils % 1.7 %; Hematocrit 33.9 % (35.3-44.9); Hemoglobin 11.2 g/dL (11.5-15.4); Immature Granulocytes % 0.6 % (0-4); Lymphocytes # 2.4 K/mcL (0.6-4.6); Lymphocytes % 23.3 %; Mean Corpuscular Hemoglobin 30.9 pg (28.0-33.3); Mean Corpuscular Volume 93.6 fL (83.0-100.0); Mean Platelet Volume 12.9 fL (9.4-12.4); Monocytes # 0.8 K/mcL (0.0-1.3); Monocytes % 8.1 %; Neutrophils # 6.6 K/mcL (1.6-8.9); Platelet Count 204 K/mcL (140-400); Red Blood Count 3.62 M/mcL (3.82-4.97); Red Cell Distribution Width 13.9 % (11.5-14.5); Segmented Neutrophils % 65.4 %; White Blood Count 10.1 K/mcL (4.3-11.1)
[2021-07-05 06:13] LABS: Calcium 9.4 mg/dL (8.6-10.3); Potassium 4.3 mEq/L (3.5-5.1)
[2021-07-05] MEDS: lisinopriL 10 MG TABLET PO SCH ×3 (07:50→19:51)
[2021-07-05] MEDS: Insulin LISPRO 300 UNITS/3 ML VIAL SUBQ SCH ×4 (07:50→19:55)
[2021-07-05] MEDS: Apixaban 5 MG TABLET PO SCH ×2 (07:50→19:50)
[2021-07-05] MEDS: carvediloL 6.25 MG TABLET PO SCH ×2 (07:50→16:58)
[2021-07-05] MEDS: amLODIPine 5 MG TABLET PO SCH (08:03)
[2021-07-05] MEDS: Cyanocobalamin (B-12) 1,000 MCG TABLET PO SCH (08:03)
[2021-07-05] MEDS: Aspirin 81 MG TAB.CHEW PO SCH (08:04)
[2021-07-05] MEDS: polyethylene glycoL 3350 17 GM POWD.PACK PO SCH (13:10)
[2021-07-05] MEDS: Insulin DETEMIR 100 UNIT/ML X5UNITS SUBQ SCH (19:55)
[2021-07-06] MEDS: *HR* OxyCODONE Immed Rel 5 MG TABLET PO PRN ×2 (04:43→13:31)
[2021-07-06] MEDS: Insulin LISPRO 300 UNITS/3 ML VIAL SUBQ SCH ×4 (08:00→21:05)
[2021-07-06] MEDS: Apixaban 5 MG TABLET PO SCH ×2 (08:11→21:04)
[2021-07-06] MEDS: amLODIPine 5 MG TABLET PO SCH (08:11)
[2021-07-06] MEDS: carvediloL 6.25 MG TABLET PO SCH ×2 (08:11→17:03)
[2021-07-06] MEDS: polyethylene glycoL 3350 17 GM POWD.PACK PO SCH (08:11)
[2021-07-06] MEDS: lisinopriL 10 MG TABLET PO SCH ×3 (08:11→21:04)
[2021-07-06] MEDS: Aspirin 81 MG TAB.CHEW PO SCH (08:11)
[2021-07-06] MEDS: Cyanocobalamin (B-12) 1,000 MCG TABLET PO SCH (08:12)
[2021-07-06] MEDS ORDERED: polyethylene glycoL 3350 17 GM POWD.PACK PO SCH (12:00)
[2021-07-06] MEDS: Insulin DETEMIR 100 UNIT/ML X5UNITS SUBQ SCH (21:04)
[2021-07-07] MEDS: *HR* OxyCODONE Immed Rel 5 MG TABLET PO PRN ×4 (03:00→22:42)
[2021-07-07] MEDS: Insulin LISPRO 300 UNITS/3 ML VIAL SUBQ SCH ×4 (09:04→20:18)
[2021-07-07] MEDS: polyethylene glycoL 3350 17 GM POWD.PACK PO SCH (09:05)
[2021-07-07] MEDS: Apixaban 5 MG TABLET PO SCH ×2 (09:05→20:18)
[2021-07-07] MEDS: Aspirin 81 MG TAB.CHEW PO SCH (09:05)
[2021-07-07] MEDS: lisinopriL 10 MG TABLET PO SCH ×3 (09:07→20:18)
[2021-07-07] MEDS: amLODIPine 5 MG TABLET PO SCH (09:07)
[2021-07-07] MEDS: carvediloL 6.25 MG TABLET PO SCH ×2 (09:07→16:39)
[2021-07-07] MEDS: Cyanocobalamin (B-12) 1,000 MCG TABLET PO SCH (09:07)
[2021-07-07] MEDS: Insulin DETEMIR 100 UNIT/ML X5UNITS SUBQ SCH (20:18)
[2021-07-08] MEDS: *HR* OxyCODONE Immed Rel 5 MG TABLET PO PRN ×3 (05:07→21:02)
[2021-07-08 07:29] LABS: Basophils # 0.1 K/mcL (0.0-0.2); Basophils % 0.9 %; Eosinophils # 0.2 K/mcL (0.0-0.6); Eosinophils % 1.9 %; Hematocrit 33.4 % (35.3-44.9); Hemoglobin 10.8 g/dL (11.5-15.4); Immature Granulocytes % 0.7 % (0-4); Lymphocytes # 3.2 K/mcL (0.6-4.6); Mean Corpuscular HGB Conc 32.3 g/dL (31.6-35.5); Mean Corpuscular Hemoglobin 30.7 pg (28.0-33.3); Mean Corpuscular Volume 94.9 fL (83.0-100.0); Mean Platelet Volume 12.4 fL (9.4-12.4); Monocytes # 0.9 K/mcL (0.0-1.3); Monocytes % 9.4 %; Neutrophils # 5.3 K/mcL (1.6-8.9); Platelet Count 232 K/mcL (140-400); Red Blood Count 3.52 M/mcL (3.82-4.97); Red Cell Distribution Width 13.8 % (11.5-14.5); Segmented Neutrophils % 54.1 %; White Blood Count 9.8 K/mcL (4.3-11.1)
[2021-07-08] MEDS: Insulin LISPRO 300 UNITS/3 ML VIAL SUBQ SCH ×4 (08:11→20:15)
[2021-07-08] MEDS: polyethylene glycoL 3350 17 GM POWD.PACK PO SCH (08:12)
[2021-07-08] MEDS: Cyanocobalamin (B-12) 1,000 MCG TABLET PO SCH (08:13)
[2021-07-08] MEDS: lisinopriL 10 MG TABLET PO SCH (08:14)
[2021-07-08] MEDS: amLODIPine 5 MG TABLET PO SCH (08:14)
[2021-07-08] MEDS: Aspirin 81 MG TAB.CHEW PO SCH (08:14)
[2021-07-08] MEDS: Apixaban 5 MG TABLET PO SCH ×2 (08:14→20:14)
[2021-07-08] MEDS: carvediloL 6.25 MG TABLET PO SCH ×2 (08:14→17:09)
[2021-07-08 09:35] LABS: Calcium 9.4 mg/dL (8.6-10.3); Potassium 5.7 mEq/L (3.5-5.1)
[2021-07-08] MEDS ORDERED: hydrALAZINE 25 MG TABLET PO PRN (11:46)
[2021-07-08] MEDS: Insulin DETEMIR 100 UNIT/ML X5UNITS SUBQ SCH (20:15)
[2021-07-09] MEDS: *HR* OxyCODONE Immed Rel 5 MG TABLET PO PRN ×4 (04:10→23:41)
[2021-07-09 08:31] LABS: Calcium 10.1 mg/dL (8.6-10.3)
[2021-07-09] MEDS: polyethylene glycoL 3350 17 GM POWD.PACK PO SCH (08:45)
[2021-07-09] MEDS: Cyanocobalamin (B-12) 1,000 MCG TABLET PO SCH (08:46)
[2021-07-09] MEDS: Aspirin 81 MG TAB.CHEW PO SCH (08:46)
[2021-07-09] MEDS: amLODIPine 5 MG TABLET PO SCH (08:46)
[2021-07-09] MEDS: carvediloL 6.25 MG TABLET PO SCH ×2 (08:47→16:57)
[2021-07-09] MEDS: Apixaban 5 MG TABLET PO SCH ×2 (08:47→19:38)
[2021-07-09] MEDS: Insulin LISPRO 300 UNITS/3 ML VIAL SUBQ SCH ×4 (08:47→19:37)
[2021-07-09] MEDS: lisinopriL 10 MG TABLET PO SCH ×2 (14:23→19:38)
[2021-07-09] MEDS: Insulin DETEMIR 100 UNIT/ML X5UNITS SUBQ SCH (19:38)
[2021-07-10] MEDS: *HR* OxyCODONE Immed Rel 5 MG TABLET PO PRN ×2 (06:25→20:32)
[2021-07-10] MEDS: Aspirin 81 MG TAB.CHEW PO SCH (08:41)
[2021-07-10] MEDS: Apixaban 5 MG TABLET PO SCH ×2 (08:41→20:32)
[2021-07-10] MEDS: lisinopriL 10 MG TABLET PO SCH ×3 (08:41→20:32)
[2021-07-10] MEDS: amLODIPine 5 MG TABLET PO SCH (08:41)
[2021-07-10] MEDS: Insulin LISPRO 300 UNITS/3 ML VIAL SUBQ SCH ×4 (08:42→20:25)
[2021-07-10] MEDS: polyethylene glycoL 3350 17 GM POWD.PACK PO SCH (08:42)
[2021-07-10] MEDS: Cyanocobalamin (B-12) 1,000 MCG TABLET PO SCH (08:42)
[2021-07-10] MEDS: carvediloL 6.25 MG TABLET PO SCH ×2 (08:42→17:19)
[2021-07-10] MEDS: Insulin DETEMIR 100 UNIT/ML X5UNITS SUBQ SCH (20:31)
[2021-07-11] MEDS: *HR* OxyCODONE Immed Rel 5 MG TABLET PO PRN ×4 (04:08→23:47)
[2021-07-11] MEDS: Insulin LISPRO 300 UNITS/3 ML VIAL SUBQ SCH ×4 (09:48→19:42)
[2021-07-11] MEDS: Aspirin 81 MG TAB.CHEW PO SCH (09:49)
[2021-07-11] MEDS: amLODIPine 5 MG TABLET PO SCH (09:49)
[2021-07-11] MEDS: Apixaban 5 MG TABLET PO SCH ×2 (09:49→20:03)
[2021-07-11] MEDS: Cyanocobalamin (B-12) 1,000 MCG TABLET PO SCH (09:50)
[2021-07-11] MEDS: carvediloL 6.25 MG TABLET PO SCH ×2 (09:50→16:59)
[2021-07-11] MEDS: lisinopriL 10 MG TABLET PO SCH ×3 (09:50→20:03)
[2021-07-11] MEDS: polyethylene glycoL 3350 17 GM POWD.PACK PO SCH (09:50)
[2021-07-11] MEDS: Insulin DETEMIR 100 UNIT/ML X5UNITS SUBQ SCH (19:52)
[2021-07-12] MEDS: *HR* OxyCODONE Immed Rel 5 MG TABLET PO PRN ×3 (05:36→17:53)
[2021-07-12] MEDS: carvediloL 6.25 MG TABLET PO SCH ×2 (08:35→16:39)
[2021-07-12] MEDS: amLODIPine 5 MG TABLET PO SCH (08:35)
[2021-07-12] MEDS: lisinopriL 10 MG TABLET PO SCH ×3 (08:35→20:24)
[2021-07-12] MEDS: polyethylene glycoL 3350 17 GM POWD.PACK PO SCH (08:35)
[2021-07-12] MEDS: Apixaban 5 MG TABLET PO SCH ×2 (08:35→20:24)
[2021-07-12] MEDS: Aspirin 81 MG TAB.CHEW PO SCH (08:35)
[2021-07-12] MEDS: Cyanocobalamin (B-12) 1,000 MCG TABLET PO SCH (08:35)
[2021-07-12] MEDS: Insulin LISPRO 300 UNITS/3 ML VIAL SUBQ SCH ×4 (08:43→20:33)
[2021-07-12 20:10] VITALS: RESP 15
[2021-07-12] MEDS: Insulin DETEMIR 100 UNIT/ML X5UNITS SUBQ SCH (20:31)
[2021-07-13] MEDS: *HR* OxyCODONE Immed Rel 5 MG TABLET PO PRN ×3 (00:58→11:45)
[2021-07-13 06:47] VITALS: BP 131/66; PULSE 71; TEMP 98.1; O2SAT 98
[2021-07-13] MEDS: Apixaban 5 MG TABLET PO SCH (07:57)
[2021-07-13] MEDS: amLODIPine 5 MG TABLET PO SCH (07:57)
[2021-07-13] MEDS: Cyanocobalamin (B-12) 1,000 MCG TABLET PO SCH (07:58)
[2021-07-13] MEDS: carvediloL 6.25 MG TABLET PO SCH (07:58)
[2021-07-13] MEDS: lisinopriL 10 MG TABLET PO SCH (07:58)
[2021-07-13] MEDS: Aspirin 81 MG TAB.CHEW PO SCH (07:59)
[2021-07-13] MEDS: Insulin LISPRO 300 UNITS/3 ML VIAL SUBQ SCH ×2 (08:04→11:45)
[2021-07-13] MEDS: polyethylene glycoL 3350 17 GM POWD.PACK PO SCH (08:04)
== END 2021-07-13 14:00 | disposition home or self-care (01) | DRG 65 ==
LOC: INPGRE 14:18
PROVIDERS: ADMIT Internal Medicine; ATTEND Internal Medicine

== ENCOUNTER 2021-08-15 08:32 | Inpatient (IN) ==
[2021-08-15] MEDS ORDERED: D5% in Water 1,000 ML IVC PRN (16:53)
[2021-08-15] MEDS ORDERED: *HR* Dextrose 50 % in Water (Syg) 50 ML SYRINGE IVP PRN (16:53)
[2021-08-15] MEDS ORDERED: Dextrose Gel 15 GM/37.5 ML TUBE PO PRN ×2 (16:53)
[2021-08-15] MEDS ORDERED: Gabapentin 100 MG CAPSULE PO SCH (21:00)
[2021-08-15] MEDS: Apixaban 5 MG TABLET PO SCH (22:54)
[2021-08-15] MEDS: *HR* LORazepam 0.5 MG TABLET PO PRN (22:55)
[2021-08-15] MEDS: Insulin DETEMIR 100 UNIT/ML per UNIT SUBQ SCH (22:55)
[2021-08-15] MEDS: Insulin LISPRO 300 UNITS/3 ML VIAL SUBQ SCH (22:55)
[2021-08-15] MEDS: Meropenem 1,000 MG in 0.9 % Sodium Chloride Mini Bag 100 ML IVPB SCH (23:16)
[2021-08-16 05:57] LABS: Basophils # 0.1 K/mcL (0.0-0.2); Basophils % 0.7 %; Eosinophils # 0.1 K/mcL (0.0-0.6); Eosinophils % 1.1 %; Hemoglobin 8.3 g/dL (11.5-15.4); Immature Granulocytes % 0.6 % (0-4); Lymphocytes # 2.9 K/mcL (0.6-4.6); Lymphocytes % 24.4 %; Mean Corpuscular HGB Conc 31.9 g/dL (31.6-35.5); Mean Corpuscular Hemoglobin 29.9 pg (28.0-33.3); Mean Corpuscular Volume 93.5 fL (83.0-100.0); Mean Platelet Volume 11.4 fL (9.4-12.4); Monocytes # 1.1 K/mcL (0.0-1.3); Monocytes % 9.5 %; Neutrophils # 7.5 K/mcL (1.6-8.9); Platelet Count 210 K/mcL (140-400); Red Blood Count 2.78 M/mcL (3.82-4.97); Red Cell Distribution Width 12.7 % (11.5-14.5); Segmented Neutrophils % 63.7 %; White Blood Count 11.7 K/mcL (4.3-11.1)
[2021-08-16] MEDS: Meropenem 1,000 MG in 0.9 % Sodium Chloride Mini Bag 100 ML IVPB SCH ×3 (06:37→23:48)
[2021-08-16] MEDS: Insulin LISPRO 300 UNITS/3 ML VIAL SUBQ SCH ×4 (07:37→20:21)
[2021-08-16] MEDS: Nicotine 14 MG PATCH.TD24 TD SCH (08:19)
[2021-08-16] MEDS: polyethylene glycoL 3350 17 GM POWD.PACK PO SCH (08:22)
[2021-08-16] MEDS: Aspirin 81 MG TAB.CHEW PO SCH (08:23)
[2021-08-16] MEDS: *HR* OxyCODONE/APAP 10/325 TABLET PO PRN ×2 (08:23→20:20)
[2021-08-16] MEDS: Insulin DETEMIR 100 UNIT/ML per UNIT SUBQ SCH ×2 (08:23→20:21)
[2021-08-16] MEDS: amLODIPine 5 MG TABLET PO SCH (08:23)
[2021-08-16] MEDS: carvediloL 6.25 MG TABLET PO SCH ×2 (08:24→17:21)
[2021-08-16] MEDS: Cyanocobalamin (B-12) 1,000 MCG TABLET PO SCH (08:24)
[2021-08-16] MEDS: Apixaban 5 MG TABLET PO SCH ×2 (08:24→20:20)
[2021-08-16] MEDS: Gabapentin 100 MG CAPSULE PO SCH ×3 (08:24→20:20)
[2021-08-16 09:15] LABS: BUN/Creatinine Ratio 28 (6-26); Blood Urea Nitrogen 28 mg/dL (6-20); Calcium 9.4 mg/dL (8.6-10.3); Carbon Dioxide 28 mEq/L (23-29); Chloride 99 mEq/L (98-107); Glucose 136 mg/dL (70-105); Osmolality,Calculated 288 (280-300); Potassium 4.2 mEq/L (3.5-5.1); Sodium 135 mEq/L (136-145); eGFR For African Americans > 60 (> 60); eGFR For Non-African Americans 58 (> 60)
[2021-08-16] MEDS: *HR* LORazepam 0.5 MG TABLET PO PRN (23:49)
[2021-08-17 05:25] LABS: Basophils # 0.1 K/mcL (0.0-0.2); Basophils % 0.8 %; Eosinophils # 0.2 K/mcL (0.0-0.6); Eosinophils % 2.2 %; Hematocrit 25.2 % (35.3-44.9); Hemoglobin 8.1 g/dL (11.5-15.4); Immature Granulocytes % 0.5 % (0-4); Lymphocytes # 3.3 K/mcL (0.6-4.6); Lymphocytes % 30.4 %; Mean Corpuscular HGB Conc 32.1 g/dL (31.6-35.5); Mean Corpuscular Hemoglobin 30.6 pg (28.0-33.3); Mean Corpuscular Volume 95.1 fL (83.0-100.0); Mean Platelet Volume 11.7 fL (9.4-12.4); Monocytes # 0.9 K/mcL (0.0-1.3); Monocytes % 8.2 %; Neutrophils # 6.3 K/mcL (1.6-8.9); Platelet Count 219 K/mcL (140-400); Red Blood Count 2.65 M/mcL (3.82-4.97); Red Cell Distribution Width 12.8 % (11.5-14.5); Segmented Neutrophils % 57.9 %; White Blood Count 10.8 K/mcL (4.3-11.1)
[2021-08-17 05:40] LABS: BUN/Creatinine Ratio 31 (6-26); Blood Urea Nitrogen 33 mg/dL (6-20); Calcium 9.2 mg/dL (8.6-10.3); Carbon Dioxide 30 mEq/L (23-29); Chloride 101 mEq/L (98-107); Glucose 201 mg/dL (70-105); Osmolality,Calculated 297 (280-300); Sodium 137 mEq/L (136-145); eGFR For African Americans > 60 (> 60); eGFR For Non-African Americans 54 (> 60)
[2021-08-17] MEDS: *HR* OxyCODONE/APAP 10/325 TABLET PO PRN ×3 (05:59→17:43)
[2021-08-17] MEDS: Meropenem 1,000 MG in 0.9 % Sodium Chloride Mini Bag 100 ML IVPB SCH ×2 (07:34→16:23)
[2021-08-17] MEDS: amLODIPine 5 MG TABLET PO SCH (07:50)
[2021-08-17] MEDS: Apixaban 5 MG TABLET PO SCH ×2 (07:50→21:01)
[2021-08-17] MEDS: Nicotine 14 MG PATCH.TD24 TD SCH (07:50)
[2021-08-17] MEDS: Aspirin 81 MG TAB.CHEW PO SCH (07:50)
[2021-08-17] MEDS: Cyanocobalamin (B-12) 1,000 MCG TABLET PO SCH (07:50)
[2021-08-17] MEDS: carvediloL 6.25 MG TABLET PO SCH ×2 (07:50→16:23)
[2021-08-17] MEDS: Gabapentin 100 MG CAPSULE PO SCH ×3 (07:50→21:01)
[2021-08-17] MEDS: *HR* LORazepam 0.5 MG TABLET PO PRN ×2 (07:50→16:22)
[2021-08-17] MEDS: polyethylene glycoL 3350 17 GM POWD.PACK PO SCH (07:51)
[2021-08-17] MEDS: Insulin LISPRO 300 UNITS/3 ML VIAL SUBQ SCH ×4 (07:52→21:03)
[2021-08-17] MEDS: Insulin DETEMIR 100 UNIT/ML per UNIT SUBQ SCH ×2 (07:53→21:01)
[2021-08-18] MEDS: Meropenem 1,000 MG in 0.9 % Sodium Chloride Mini Bag 100 ML IVPB SCH ×4 (00:02→22:57)
[2021-08-18] MEDS: *HR* OxyCODONE/APAP 10/325 TABLET PO PRN ×3 (06:06→18:31)
[2021-08-18] MEDS: Insulin LISPRO 300 UNITS/3 ML VIAL SUBQ SCH ×4 (07:51→21:37)
[2021-08-18] MEDS: Gabapentin 100 MG CAPSULE PO SCH ×3 (08:18→21:36)
[2021-08-18] MEDS: carvediloL 6.25 MG TABLET PO SCH ×2 (08:19→17:45)
[2021-08-18] MEDS: Aspirin 81 MG TAB.CHEW PO SCH (08:19)
[2021-08-18] MEDS: amLODIPine 5 MG TABLET PO SCH (08:19)
[2021-08-18] MEDS: Apixaban 5 MG TABLET PO SCH ×2 (08:20→21:36)
[2021-08-18] MEDS: Insulin DETEMIR 100 UNIT/ML per UNIT SUBQ SCH ×2 (08:20→21:38)
[2021-08-18] MEDS: Cyanocobalamin (B-12) 1,000 MCG TABLET PO SCH (08:20)
[2021-08-18] MEDS: polyethylene glycoL 3350 17 GM POWD.PACK PO SCH (08:20)
[2021-08-18] MEDS: Nicotine 14 MG PATCH.TD24 TD SCH (08:57)
[2021-08-18] MEDS: *HR* LORazepam 0.5 MG TABLET PO PRN ×2 (12:06→21:36)
[2021-08-19] MEDS: *HR* OxyCODONE/APAP 10/325 TABLET PO PRN ×3 (04:53→22:51)
[2021-08-19] MEDS: Meropenem 1,000 MG in 0.9 % Sodium Chloride Mini Bag 100 ML IVPB SCH ×3 (06:08→22:51)
[2021-08-19] MEDS: Insulin LISPRO 300 UNITS/3 ML VIAL SUBQ SCH ×4 (08:31→21:27)
[2021-08-19] MEDS: Gabapentin 100 MG CAPSULE PO SCH ×3 (08:47→21:22)
[2021-08-19] MEDS: amLODIPine 5 MG TABLET PO SCH (08:47)
[2021-08-19] MEDS: Cyanocobalamin (B-12) 1,000 MCG TABLET PO SCH (08:47)
[2021-08-19] MEDS: carvediloL 6.25 MG TABLET PO SCH ×2 (08:47→15:56)
[2021-08-19] MEDS: Apixaban 5 MG TABLET PO SCH (08:47)
[2021-08-19] MEDS: Aspirin 81 MG TAB.CHEW PO SCH (08:47)
[2021-08-19] MEDS: Insulin DETEMIR 100 UNIT/ML X5UNITS SUBQ SCH ×2 (08:48→21:24)
[2021-08-19] MEDS: Nicotine 14 MG PATCH.TD24 TD SCH (08:48)
[2021-08-19] MEDS: polyethylene glycoL 3350 17 GM POWD.PACK PO SCH (08:49)
[2021-08-19] MEDS: *HR* LORazepam 0.5 MG TABLET PO PRN (21:23)
[2021-08-20] MEDS: Meropenem 1,000 MG in 0.9 % Sodium Chloride Mini Bag 100 ML IVPB SCH ×3 (06:18→23:04)
[2021-08-20] MEDS: *HR* OxyCODONE/APAP 10/325 TABLET PO PRN ×2 (06:18→16:53)
[2021-08-20] MEDS: Insulin LISPRO 300 UNITS/3 ML VIAL SUBQ SCH ×4 (07:37→20:19)
[2021-08-20] MEDS: Aspirin 81 MG TAB.CHEW PO SCH (07:59)
[2021-08-20] MEDS: carvediloL 6.25 MG TABLET PO SCH ×2 (08:00→16:54)
[2021-08-20] MEDS: Cyanocobalamin (B-12) 1,000 MCG TABLET PO SCH (08:00)
[2021-08-20] MEDS: Gabapentin 100 MG CAPSULE PO SCH ×3 (08:00→20:17)
[2021-08-20] MEDS: amLODIPine 5 MG TABLET PO SCH (08:00)
[2021-08-20] MEDS: Insulin DETEMIR 100 UNIT/ML X5UNITS SUBQ SCH ×2 (08:01→20:23)
[2021-08-20] MEDS: Nicotine 14 MG PATCH.TD24 TD SCH (08:50)
[2021-08-20] MEDS: polyethylene glycoL 3350 17 GM POWD.PACK PO SCH (08:50)
[2021-08-20] MEDS ORDERED: Fluconazole 150 MG TABLET PO ONE (19:58)
[2021-08-21 04:46] LABS: Basophils # 0.1 K/mcL (0.0-0.2); Basophils % 0.8 %; Eosinophils # 0.3 K/mcL (0.0-0.6); Eosinophils % 2.5 %; Hematocrit 24.9 % (35.3-44.9); Hemoglobin 7.8 g/dL (11.5-15.4); Immature Granulocytes % 0.8 % (0-4); Lymphocytes # 3.3 K/mcL (0.6-4.6); Lymphocytes % 29.6 %; Mean Corpuscular HGB Conc 31.3 g/dL (31.6-35.5); Mean Corpuscular Hemoglobin 30.1 pg (28.0-33.3); Mean Corpuscular Volume 96.1 fL (83.0-100.0); Mean Platelet Volume 11.4 fL (9.4-12.4); Monocytes % 8.5 %; Neutrophils # 6.5 K/mcL (1.6-8.9); Platelet Count 247 K/mcL (140-400); Red Blood Count 2.59 M/mcL (3.82-4.97); Red Cell Distribution Width 13.2 % (11.5-14.5); Segmented Neutrophils % 57.8 %; White Blood Count 11.2 K/mcL (4.3-11.1)
[2021-08-21 05:03] LABS: Potassium 4.4 mEq/L (3.5-5.1)
[2021-08-21] MEDS: Meropenem 1,000 MG in 0.9 % Sodium Chloride Mini Bag 100 ML IVPB SCH ×3 (05:37→23:19)
[2021-08-21] MEDS: carvediloL 6.25 MG TABLET PO SCH ×2 (08:29→17:25)
[2021-08-21] MEDS: Aspirin 81 MG TAB.CHEW PO SCH (08:29)
[2021-08-21] MEDS: *HR* LORazepam 0.5 MG TABLET PO PRN ×2 (08:30→14:26)
[2021-08-21] MEDS: amLODIPine 5 MG TABLET PO SCH (08:30)
[2021-08-21] MEDS: Gabapentin 100 MG CAPSULE PO SCH ×3 (08:30→21:25)
[2021-08-21] MEDS: *HR* OxyCODONE/APAP 10/325 TABLET PO PRN ×3 (08:31→21:31)
[2021-08-21] MEDS: Cyanocobalamin (B-12) 1,000 MCG TABLET PO SCH (08:31)
[2021-08-21] MEDS: Nicotine 14 MG PATCH.TD24 TD SCH (08:31)
[2021-08-21] MEDS: polyethylene glycoL 3350 17 GM POWD.PACK PO SCH (08:31)
[2021-08-21] MEDS: Insulin LISPRO 300 UNITS/3 ML VIAL SUBQ SCH ×4 (08:44→21:26)
[2021-08-21] MEDS: *HR* Acetylcysteine 20% 600 MG/3 ML ORAL SYRINGE PO SCH ×2 (08:44→21:25)
[2021-08-21] MEDS: Insulin DETEMIR 100 UNIT/ML X5UNITS SUBQ SCH ×2 (08:45→21:27)
[2021-08-22] MEDS: *HR* OxyCODONE/APAP 10/325 TABLET PO PRN ×3 (04:38→20:57)
[2021-08-22] MEDS: *HR* LORazepam 0.5 MG TABLET PO PRN ×2 (04:38→20:57)
[2021-08-22] MEDS ORDERED: Meropenem 1,000 MG in 0.9 % Sodium Chloride Mini Bag 100 ML IVPB SCH (10:00)
[2021-08-22] MEDS: Aspirin 81 MG TAB.CHEW PO SCH (13:04)
[2021-08-22] MEDS: Gabapentin 100 MG CAPSULE PO SCH ×3 (13:04→20:58)
[2021-08-22] MEDS: amLODIPine 5 MG TABLET PO SCH (13:04)
[2021-08-22] MEDS: polyethylene glycoL 3350 17 GM POWD.PACK PO SCH (13:04)
[2021-08-22] MEDS: Cyanocobalamin (B-12) 1,000 MCG TABLET PO SCH (13:05)
[2021-08-22] MEDS: Insulin LISPRO 300 UNITS/3 ML VIAL SUBQ SCH ×3 (13:07→19:44)
[2021-08-22] MEDS: Nicotine 14 MG PATCH.TD24 TD SCH (13:07)
[2021-08-22] MEDS: Insulin DETEMIR 100 UNIT/ML X5UNITS SUBQ SCH ×2 (13:09→20:55)
[2021-08-22] MEDS: *HR* Acetylcysteine 20% 600 MG/3 ML ORAL SYRINGE PO SCH ×2 (13:12→20:54)
[2021-08-22] MEDS: carvediloL 6.25 MG TABLET PO SCH ×2 (13:12→20:58)
[2021-08-23] MEDS: *HR* OxyCODONE/APAP 10/325 TABLET PO PRN ×3 (05:13→20:28)
[2021-08-23 05:47] LABS: Basophils # 0.1 K/mcL (0.0-0.2); Basophils % 0.6 %; Eosinophils # 0.2 K/mcL (0.0-0.6); Eosinophils % 2.6 %; Hematocrit 26.2 % (35.3-44.9); Hemoglobin 8.4 g/dL (11.5-15.4); Immature Granulocytes % 0.8 % (0-4); Lymphocytes # 2.8 K/mcL (0.6-4.6); Lymphocytes % 29.9 %; Mean Corpuscular HGB Conc 32.1 g/dL (31.6-35.5); Mean Corpuscular Hemoglobin 30.2 pg (28.0-33.3); Mean Corpuscular Volume 94.2 fL (83.0-100.0); Mean Platelet Volume 11.2 fL (9.4-12.4); Monocytes # 0.7 K/mcL (0.0-1.3); Monocytes % 7.8 %; Neutrophils # 5.4 K/mcL (1.6-8.9); Platelet Count 247 K/mcL (140-400); Red Blood Count 2.78 M/mcL (3.82-4.97); Red Cell Distribution Width 13.2 % (11.5-14.5); Segmented Neutrophils % 58.3 %; White Blood Count 9.3 K/mcL (4.3-11.1)
[2021-08-23 06:03] LABS: BUN/Creatinine Ratio 30 (6-26); Blood Urea Nitrogen 31 mg/dL (6-20); Carbon Dioxide 30 mEq/L (23-29); Chloride 101 mEq/L (98-107); Glucose 177 mg/dL (70-105); Osmolality,Calculated 295 (280-300); Potassium 4.6 mEq/L (3.5-5.1); Sodium 137 mEq/L (136-145); eGFR For African Americans > 60 (> 60); eGFR For Non-African Americans 57 (> 60)
[2021-08-23] MEDS: carvediloL 6.25 MG TABLET PO SCH ×2 (08:17→15:32)
[2021-08-23] MEDS: Insulin LISPRO 300 UNITS/3 ML VIAL SUBQ SCH ×4 (08:25→20:17)
[2021-08-23] MEDS: Insulin DETEMIR 100 UNIT/ML X5UNITS SUBQ SCH ×2 (08:26→20:17)
[2021-08-23] MEDS: Nicotine 14 MG PATCH.TD24 TD SCH (08:29)
[2021-08-23] MEDS: *HR* Acetylcysteine 20% 600 MG/3 ML ORAL SYRINGE PO SCH ×2 (08:33→20:17)
[2021-08-23] MEDS: Gabapentin 100 MG CAPSULE PO SCH ×3 (08:33→20:17)
[2021-08-23] MEDS: Cyanocobalamin (B-12) 1,000 MCG TABLET PO SCH (08:33)
[2021-08-23] MEDS: amLODIPine 5 MG TABLET PO SCH (08:33)
[2021-08-23] MEDS: Aspirin 81 MG TAB.CHEW PO SCH (08:33)
[2021-08-23] MEDS: polyethylene glycoL 3350 17 GM POWD.PACK PO SCH (08:34)
[2021-08-23] MEDS: *HR* LORazepam 0.5 MG TABLET PO PRN ×2 (08:41→20:28)
[2021-08-23] MEDS: Apixaban 5 MG TABLET PO SCH ×2 (13:05→20:16)
[2021-08-24] MEDS: carvediloL 6.25 MG TABLET PO SCH ×2 (08:07→16:34)
[2021-08-24] MEDS: Nicotine 14 MG PATCH.TD24 TD SCH (08:07)
[2021-08-24] MEDS: polyethylene glycoL 3350 17 GM POWD.PACK PO SCH (08:07)
[2021-08-24] MEDS: Insulin LISPRO 300 UNITS/3 ML VIAL SUBQ SCH ×4 (08:19→21:01)
[2021-08-24] MEDS: Insulin DETEMIR 100 UNIT/ML X5UNITS SUBQ SCH ×2 (08:20→21:06)
[2021-08-24] MEDS: Cyanocobalamin (B-12) 1,000 MCG TABLET PO SCH (08:24)
[2021-08-24] MEDS: Apixaban 5 MG TABLET PO SCH ×2 (08:24→21:05)
[2021-08-24] MEDS: Aspirin 81 MG TAB.CHEW PO SCH (08:24)
[2021-08-24] MEDS: Gabapentin 100 MG CAPSULE PO SCH ×3 (08:24→21:05)
[2021-08-24] MEDS: *HR* OxyCODONE/APAP 10/325 TABLET PO PRN ×3 (08:24→21:06)
[2021-08-24] MEDS: amLODIPine 5 MG TABLET PO SCH (08:25)
[2021-08-24] MEDS: *HR* LORazepam 0.5 MG TABLET PO PRN ×2 (10:56→21:05)
[2021-08-25] MEDS: *HR* OxyCODONE/APAP 10/325 TABLET PO PRN ×4 (02:56→21:49)
[2021-08-25] MEDS: Aspirin 81 MG TAB.CHEW PO SCH (07:36)
[2021-08-25] MEDS: carvediloL 6.25 MG TABLET PO SCH ×2 (07:36→16:18)
[2021-08-25] MEDS: Apixaban 5 MG TABLET PO SCH ×2 (07:36→21:50)
[2021-08-25] MEDS: Cyanocobalamin (B-12) 1,000 MCG TABLET PO SCH (07:36)
[2021-08-25] MEDS: *HR* LORazepam 0.5 MG TABLET PO PRN ×3 (07:36→21:48)
[2021-08-25] MEDS: Nicotine 14 MG PATCH.TD24 TD SCH (07:37)
[2021-08-25] MEDS: Gabapentin 100 MG CAPSULE PO SCH ×3 (07:37→21:48)
[2021-08-25] MEDS: Insulin LISPRO 300 UNITS/3 ML VIAL SUBQ SCH ×4 (07:40→21:45)
[2021-08-25] MEDS: polyethylene glycoL 3350 17 GM POWD.PACK PO SCH (07:41)
[2021-08-25] MEDS: amLODIPine 5 MG TABLET PO SCH (07:41)
[2021-08-25] MEDS ORDERED: Insulin DETEMIR 100 UNIT/ML per UNIT SUBQ ONE (09:45)
[2021-08-25] MEDS: Insulin DETEMIR 100 UNIT/ML X5UNITS SUBQ SCH ×2 (10:48→21:53)
[2021-08-26 04:59] LABS: Basophils # 0.1 K/mcL (0.0-0.2); Basophils % 0.8 %; Eosinophils # 0.3 K/mcL (0.0-0.6); Hematocrit 25.6 % (35.3-44.9); Hemoglobin 8.1 g/dL (11.5-15.4); Immature Granulocytes % 0.5 % (0-4); Lymphocytes # 2.2 K/mcL (0.6-4.6); Lymphocytes % 24.9 %; Mean Corpuscular HGB Conc 31.6 g/dL (31.6-35.5); Mean Corpuscular Volume 94.8 fL (83.0-100.0); Mean Platelet Volume 11.6 fL (9.4-12.4); Monocytes # 0.9 K/mcL (0.0-1.3); Monocytes % 10.5 %; Neutrophils # 5.3 K/mcL (1.6-8.9); Platelet Count 219 K/mcL (140-400); Red Cell Distribution Width 13.6 % (11.5-14.5); Segmented Neutrophils % 60.3 %; White Blood Count 8.9 K/mcL (4.3-11.1)
[2021-08-26] MEDS: *HR* OxyCODONE/APAP 10/325 TABLET PO PRN ×3 (06:28→21:16)
[2021-08-26 07:13] LABS: Calcium 9.1 mg/dL (8.6-10.3); Potassium 4.5 mEq/L (3.5-5.1)
[2021-08-26] MEDS: *HR* LORazepam 0.5 MG TABLET PO PRN ×3 (08:33→21:16)
[2021-08-26] MEDS: Apixaban 5 MG TABLET PO SCH ×2 (08:33→21:17)
[2021-08-26] MEDS: Aspirin 81 MG TAB.CHEW PO SCH (08:33)
[2021-08-26] MEDS: Cyanocobalamin (B-12) 1,000 MCG TABLET PO SCH (08:33)
[2021-08-26] MEDS: Gabapentin 100 MG CAPSULE PO SCH ×3 (08:33→21:18)
[2021-08-26] MEDS: carvediloL 6.25 MG TABLET PO SCH ×2 (08:33→16:32)
[2021-08-26] MEDS: amLODIPine 5 MG TABLET PO SCH (08:33)
[2021-08-26] MEDS: polyethylene glycoL 3350 17 GM POWD.PACK PO SCH (08:34)
[2021-08-26] MEDS: Nicotine 14 MG PATCH.TD24 TD SCH (08:34)
[2021-08-26] MEDS: Insulin LISPRO 300 UNITS/3 ML VIAL SUBQ SCH ×4 (08:39→21:17)
[2021-08-26] MEDS: Insulin DETEMIR 100 UNIT/ML X5UNITS SUBQ SCH ×2 (08:42→21:19)
[2021-08-27] MEDS: *HR* OxyCODONE/APAP 10/325 TABLET PO PRN ×3 (06:31→21:40)
[2021-08-27] MEDS: Apixaban 5 MG TABLET PO SCH ×2 (08:20→21:39)
[2021-08-27] MEDS: Gabapentin 100 MG CAPSULE PO SCH ×3 (08:25→21:42)
[2021-08-27] MEDS: Cyanocobalamin (B-12) 1,000 MCG TABLET PO SCH (08:26)
[2021-08-27] MEDS: amLODIPine 5 MG TABLET PO SCH (08:26)
[2021-08-27] MEDS: Aspirin 81 MG TAB.CHEW PO SCH (08:27)
[2021-08-27] MEDS: carvediloL 6.25 MG TABLET PO SCH ×2 (08:27→16:53)
[2021-08-27] MEDS: Insulin DETEMIR 100 UNIT/ML X5UNITS SUBQ SCH ×2 (08:28→21:43)
[2021-08-27] MEDS: Insulin LISPRO 300 UNITS/3 ML VIAL SUBQ SCH ×4 (08:31→21:42)
[2021-08-27] MEDS: Nicotine 14 MG PATCH.TD24 TD SCH (08:55)
[2021-08-27] MEDS: polyethylene glycoL 3350 17 GM POWD.PACK PO SCH (08:56)
[2021-08-27] MEDS: *HR* LORazepam 0.5 MG TABLET PO PRN (21:39)
[2021-08-28] MEDS: *HR* OxyCODONE/APAP 10/325 TABLET PO PRN ×3 (04:05→22:11)
[2021-08-28] MEDS: Gabapentin 100 MG CAPSULE PO SCH ×3 (08:31→22:11)
[2021-08-28] MEDS: Apixaban 5 MG TABLET PO SCH ×2 (08:32→22:11)
[2021-08-28] MEDS: Insulin DETEMIR 100 UNIT/ML X5UNITS SUBQ SCH ×2 (08:32→22:11)
[2021-08-28] MEDS: Insulin LISPRO 300 UNITS/3 ML VIAL SUBQ SCH ×4 (08:32→19:26)
[2021-08-28] MEDS: Aspirin 81 MG TAB.CHEW PO SCH (08:32)
[2021-08-28] MEDS: amLODIPine 5 MG TABLET PO SCH (08:32)
[2021-08-28] MEDS: carvediloL 6.25 MG TABLET PO SCH ×2 (08:32→17:00)
[2021-08-28] MEDS: Nicotine 14 MG PATCH.TD24 TD SCH (08:33)
[2021-08-28] MEDS: Cyanocobalamin (B-12) 1,000 MCG TABLET PO SCH (08:33)
[2021-08-28] MEDS: polyethylene glycoL 3350 17 GM POWD.PACK PO SCH (08:33)
[2021-08-28] MEDS: *HR* LORazepam 0.5 MG TABLET PO PRN (22:11)
[2021-08-29] MEDS: *HR* OxyCODONE/APAP 10/325 TABLET PO PRN ×2 (05:02→21:36)
[2021-08-29] MEDS: Insulin LISPRO 300 UNITS/3 ML VIAL SUBQ SCH ×4 (08:10→21:35)
[2021-08-29] MEDS: Cyanocobalamin (B-12) 1,000 MCG TABLET PO SCH (08:11)
[2021-08-29] MEDS: *HR* LORazepam 0.5 MG TABLET PO PRN ×2 (08:11→21:37)
[2021-08-29] MEDS: Apixaban 5 MG TABLET PO SCH ×2 (08:11→21:36)
[2021-08-29] MEDS: Aspirin 81 MG TAB.CHEW PO SCH (08:11)
[2021-08-29] MEDS: Gabapentin 100 MG CAPSULE PO SCH ×3 (08:11→21:37)
[2021-08-29] MEDS: Nicotine 14 MG PATCH.TD24 TD SCH (08:12)
[2021-08-29] MEDS: carvediloL 6.25 MG TABLET PO SCH ×2 (08:12→17:07)
[2021-08-29] MEDS: Insulin DETEMIR 100 UNIT/ML X5UNITS SUBQ SCH ×2 (08:12→21:35)
[2021-08-29] MEDS: polyethylene glycoL 3350 17 GM POWD.PACK PO SCH (08:12)
[2021-08-29] MEDS: amLODIPine 5 MG TABLET PO SCH (08:12)
[2021-08-29 14:47] LABS: Hematocrit 29.1 % (35.3-44.9); Hemoglobin 9.2 g/dL (11.5-15.4); Mean Corpuscular HGB Conc 31.6 g/dL (31.6-35.5); Mean Corpuscular Hemoglobin 30.4 pg (28.0-33.3); Platelet Count 238 K/mcL (140-400); Red Blood Count 3.03 M/mcL (3.82-4.97); Red Cell Distribution Width 13.8 % (11.5-14.5); White Blood Count 7.6 K/mcL (4.3-11.1)
[2021-08-29 15:07] LABS: Albumin 3.5 g/dL (3.5-5.7); Albumin/Globulin Ratio 0.9 (1.1-2.2); Bilirubin,Total 0.3 mg/dL (0.3-1.0); Calcium 9.7 mg/dL (8.6-10.3); Magnesium 1.9 mg/dL (1.6-2.6); Potassium 4.2 mEq/L (3.5-5.1); Total Protein 7.5 g/dL (6.4-8.9)
[2021-08-29 16:46] LABS: Albumin 3.5 g/dL (3.5-5.7); Albumin/Globulin Ratio 0.9 (1.1-2.2); Bilirubin,Direct 0.1 mg/dL (0.0-0.2); Bilirubin,Indirect 0.2 mg/dL (0.0-1.0); Bilirubin,Total 0.3 mg/dL (0.3-1.0); Globulin 4.1 g/dL (2.4-3.5); Total Protein 7.6 g/dL (6.4-8.9)
[2021-08-29 18:49] LABS: Bilirubin,Urine Negative (Negative); Blood,Urine Negative (Negative); Color,Urine Yellow (Yellow); Glucose,Urine (UA) 100 mg/dL (Normal); Ketones,Urine Negative (Negative); Leukocyte Esterase,Urine Negative (Negative); Nitrite,Urine Negative (Negative); Protein,Urine 30 mg/dL (Neg-Trace); Urobilinogen,Urine Normal (Normal)
[2021-08-29 18:51] LABS: Clarity,Urine Slightly cloudy (Clear)
[2021-08-29 19:18] LABS: RBC,Urine 0-3 per hpf (0-3); Squamous Epithelial Cell,Urine Few per hpf (None-Few); WBC,Urine 0-3 per hpf (0-3)
[2021-08-29] MEDS: Lactulose Oral Soln 20 GM/30 ML UDC PO SCH (21:36)
[2021-08-30 05:21] LABS: Hematocrit 26.8 % (35.3-44.9); Hemoglobin 8.5 g/dL (11.5-15.4); Mean Corpuscular HGB Conc 31.7 g/dL (31.6-35.5); Mean Corpuscular Hemoglobin 29.6 pg (28.0-33.3); Mean Corpuscular Volume 93.4 fL (83.0-100.0); Mean Platelet Volume 12.1 fL (9.4-12.4); Platelet Count 212 K/mcL (140-400); Red Blood Count 2.87 M/mcL (3.82-4.97); Red Cell Distribution Width 13.6 % (11.5-14.5); White Blood Count 7.9 K/mcL (4.3-11.1)
[2021-08-30 07:04] LABS: Alanine Aminotransferase 62 Units/L (7-52); Albumin 3.2 g/dL (3.5-5.7); Alkaline Phosphatase 63 Units/L (34-104); Aspartate Amino Transferase 35 Units/L (13-39); BUN/Creatinine Ratio 34 (6-26); Bilirubin,Total 0.2 mg/dL (0.3-1.0); Blood Urea Nitrogen 35 mg/dL (6-20); Calcium 9.6 mg/dL (8.6-10.3); Carbon Dioxide 24 mEq/L (23-29); Chloride 108 mEq/L (98-107); Glucose 176 mg/dL (70-105); Osmolality,Calculated 308 (280-300); Potassium 4.6 mEq/L (3.5-5.1); Sodium 143 mEq/L (136-145); eGFR For African Americans > 60 (> 60); eGFR For Non-African Americans 57 (> 60)
[2021-08-30] MEDS: Insulin LISPRO 300 UNITS/3 ML VIAL SUBQ SCH ×4 (08:53→21:14)
[2021-08-30] MEDS: *HR* OxyCODONE/APAP 10/325 TABLET PO PRN ×3 (08:54→21:16)
[2021-08-30] MEDS: Nicotine 14 MG PATCH.TD24 TD SCH (08:55)
[2021-08-30] MEDS: carvediloL 6.25 MG TABLET PO SCH ×2 (08:55→17:59)
[2021-08-30] MEDS: Aspirin 81 MG TAB.CHEW PO SCH (08:55)
[2021-08-30] MEDS: Gabapentin 100 MG CAPSULE PO SCH ×3 (08:55→21:16)
[2021-08-30] MEDS: polyethylene glycoL 3350 17 GM POWD.PACK PO SCH (08:56)
[2021-08-30] MEDS: amLODIPine 5 MG TABLET PO SCH (08:56)
[2021-08-30] MEDS: Lactulose Oral Soln 20 GM/30 ML UDC PO SCH ×2 (08:56→21:14)
[2021-08-30] MEDS: Apixaban 5 MG TABLET PO SCH ×2 (08:56→21:16)
[2021-08-30] MEDS: Cyanocobalamin (B-12) 1,000 MCG TABLET PO SCH (08:57)
[2021-08-30] MEDS: Insulin DETEMIR 100 UNIT/ML X5UNITS SUBQ SCH ×2 (09:41→21:15)
[2021-08-30] MEDS: *HR* LORazepam 0.5 MG TABLET PO PRN ×2 (09:41→21:16)
[2021-08-30 11:06] LABS: Albumin/Globulin Ratio 0.9 (1.1-2.2); Globulin 3.4 g/dL (2.4-3.5); Total Protein 6.6 g/dL (6.4-8.9)
[2021-08-31 04:39] LABS: Hematocrit 27.1 % (35.3-44.9); Hemoglobin 8.7 g/dL (11.5-15.4); Mean Corpuscular HGB Conc 32.1 g/dL (31.6-35.5); Mean Corpuscular Hemoglobin 30.1 pg (28.0-33.3); Mean Corpuscular Volume 93.8 fL (83.0-100.0); Mean Platelet Volume 11.8 fL (9.4-12.4); Platelet Count 216 K/mcL (140-400); Red Blood Count 2.89 M/mcL (3.82-4.97); Red Cell Distribution Width 13.8 % (11.5-14.5)
[2021-08-31 04:56] LABS: BUN/Creatinine Ratio 37 (6-26); Blood Urea Nitrogen 38 mg/dL (6-20); Calcium 9.6 mg/dL (8.6-10.3); Carbon Dioxide 27 mEq/L (23-29); Chloride 107 mEq/L (98-107); Glucose 200 mg/dL (70-105); Magnesium 2.1 mg/dL (1.6-2.6); Osmolality,Calculated 305 (280-300); Potassium 4.4 mEq/L (3.5-5.1); Sodium 140 mEq/L (136-145); eGFR For African Americans > 60 (> 60); eGFR For Non-African Americans 56 (> 60)
[2021-08-31] MEDS: Apixaban 5 MG TABLET PO SCH ×2 (08:30→21:05)
[2021-08-31] MEDS: amLODIPine 5 MG TABLET PO SCH (08:30)
[2021-08-31] MEDS: *HR* LORazepam 0.5 MG TABLET PO PRN ×2 (08:30→21:06)
[2021-08-31] MEDS: *HR* OxyCODONE/APAP 10/325 TABLET PO PRN ×2 (08:30→21:05)
[2021-08-31] MEDS: Cyanocobalamin (B-12) 1,000 MCG TABLET PO SCH (08:30)
[2021-08-31] MEDS: Aspirin 81 MG TAB.CHEW PO SCH (08:30)
[2021-08-31] MEDS: Gabapentin 100 MG CAPSULE PO SCH ×3 (08:30→21:06)
[2021-08-31] MEDS: carvediloL 6.25 MG TABLET PO SCH ×2 (08:30→16:33)
[2021-08-31] MEDS: Nicotine 14 MG PATCH.TD24 TD SCH (08:31)
[2021-08-31] MEDS: Lactulose Oral Soln 20 GM/30 ML UDC PO SCH (08:31)
[2021-08-31] MEDS: polyethylene glycoL 3350 17 GM POWD.PACK PO SCH (08:31)
[2021-08-31] MEDS: Insulin LISPRO 300 UNITS/3 ML VIAL SUBQ SCH ×4 (08:31→21:07)
[2021-08-31] MEDS: Insulin DETEMIR 100 UNIT/ML X5UNITS SUBQ SCH ×2 (08:31→21:06)
[2021-09-01] MEDS: *HR* OxyCODONE/APAP 10/325 TABLET PO PRN ×2 (03:15→13:15)
[2021-09-01] MEDS: polyethylene glycoL 3350 17 GM POWD.PACK PO SCH (08:10)
[2021-09-01] MEDS: Nicotine 14 MG PATCH.TD24 TD SCH (08:11)
[2021-09-01] MEDS: Insulin DETEMIR 100 UNIT/ML X5UNITS SUBQ SCH ×2 (08:11→19:27)
[2021-09-01] MEDS: Gabapentin 100 MG CAPSULE PO SCH ×3 (08:12→19:26)
[2021-09-01] MEDS: Insulin LISPRO 300 UNITS/3 ML VIAL SUBQ SCH ×4 (08:12→19:32)
[2021-09-01] MEDS: Apixaban 5 MG TABLET PO SCH ×2 (08:12→19:26)
[2021-09-01] MEDS: Aspirin 81 MG TAB.CHEW PO SCH (08:13)
[2021-09-01] MEDS: Cyanocobalamin (B-12) 1,000 MCG TABLET PO SCH (08:13)
[2021-09-01] MEDS: amLODIPine 5 MG TABLET PO SCH (08:13)
[2021-09-01] MEDS: *HR* LORazepam 0.5 MG TABLET PO PRN (08:13)
[2021-09-01] MEDS: carvediloL 6.25 MG TABLET PO SCH ×2 (08:13→16:52)
[2021-09-02] MEDS: *HR* OxyCODONE/APAP 10/325 TABLET PO PRN ×3 (04:13→21:41)
[2021-09-02] MEDS: Insulin DETEMIR 100 UNIT/ML X5UNITS SUBQ SCH ×2 (08:11→21:42)
[2021-09-02] MEDS: polyethylene glycoL 3350 17 GM POWD.PACK PO SCH (08:11)
[2021-09-02] MEDS: Insulin LISPRO 300 UNITS/3 ML VIAL SUBQ SCH ×4 (08:11→21:43)
[2021-09-02] MEDS: Nicotine 14 MG PATCH.TD24 TD SCH (08:11)
[2021-09-02] MEDS: amLODIPine 5 MG TABLET PO SCH (08:12)
[2021-09-02] MEDS: Apixaban 5 MG TABLET PO SCH ×2 (08:12→21:42)
[2021-09-02] MEDS: Gabapentin 100 MG CAPSULE PO SCH ×3 (08:12→21:42)
[2021-09-02] MEDS: Aspirin 81 MG TAB.CHEW PO SCH (08:12)
[2021-09-02] MEDS: Cyanocobalamin (B-12) 1,000 MCG TABLET PO SCH (08:12)
[2021-09-02] MEDS: carvediloL 6.25 MG TABLET PO SCH ×2 (08:12→15:49)
[2021-09-02] MEDS: *HR* LORazepam 0.5 MG TABLET PO PRN (10:40)
[2021-09-03 04:47] LABS: Hematocrit 29.1 % (35.3-44.9); Hemoglobin 9.2 g/dL (11.5-15.4); Mean Corpuscular HGB Conc 31.6 g/dL (31.6-35.5); Mean Corpuscular Hemoglobin 29.9 pg (28.0-33.3); Mean Corpuscular Volume 94.5 fL (83.0-100.0); Mean Platelet Volume 11.8 fL (9.4-12.4); Platelet Count 213 K/mcL (140-400); Red Blood Count 3.08 M/mcL (3.82-4.97); Red Cell Distribution Width 13.9 % (11.5-14.5); White Blood Count 7.4 K/mcL (4.3-11.1)
[2021-09-03] MEDS: *HR* OxyCODONE/APAP 10/325 TABLET PO PRN ×2 (04:57→16:39)
[2021-09-03 05:05] LABS: Alanine Aminotransferase 49 Units/L (7-52); Albumin 3.5 g/dL (3.5-5.7); Alkaline Phosphatase 70 Units/L (34-104); Aspartate Amino Transferase 20 Units/L (13-39); BUN/Creatinine Ratio 31 (6-26); Bilirubin,Total 0.2 mg/dL (0.3-1.0); Blood Urea Nitrogen 32 mg/dL (6-20); Calcium 9.4 mg/dL (8.6-10.3); Carbon Dioxide 29 mEq/L (23-29); Chloride 103 mEq/L (98-107); Globulin 3.6 g/dL (2.4-3.5); Glucose 199 mg/dL (70-105); Magnesium 1.8 mg/dL (1.6-2.6); Osmolality,Calculated 300 (280-300); Potassium 4.4 mEq/L (3.5-5.1); Sodium 139 mEq/L (136-145); Total Protein 7.1 g/dL (6.4-8.9); eGFR For African Americans > 60 (> 60); eGFR For Non-African Americans 57 (> 60)
[2021-09-03] MEDS: Insulin DETEMIR 100 UNIT/ML X5UNITS SUBQ SCH ×2 (07:57→20:31)
[2021-09-03] MEDS: Nicotine 14 MG PATCH.TD24 TD SCH (07:58)
[2021-09-03] MEDS: Apixaban 5 MG TABLET PO SCH ×2 (07:58→20:31)
[2021-09-03] MEDS: Aspirin 81 MG TAB.CHEW PO SCH (07:58)
[2021-09-03] MEDS: polyethylene glycoL 3350 17 GM POWD.PACK PO SCH (07:58)
[2021-09-03] MEDS: carvediloL 6.25 MG TABLET PO SCH ×2 (07:58→16:39)
[2021-09-03] MEDS: Cyanocobalamin (B-12) 1,000 MCG TABLET PO SCH (07:58)
[2021-09-03] MEDS: Gabapentin 100 MG CAPSULE PO SCH ×3 (07:58→20:32)
[2021-09-03] MEDS: Insulin LISPRO 300 UNITS/3 ML VIAL SUBQ SCH ×4 (07:58→20:30)
[2021-09-03] MEDS: amLODIPine 5 MG TABLET PO SCH (07:59)
[2021-09-03] MEDS: *HR* LORazepam 0.5 MG TABLET PO PRN (20:32)
[2021-09-04] MEDS: Aspirin 81 MG TAB.CHEW PO SCH (06:39)
[2021-09-04] MEDS: Gabapentin 100 MG CAPSULE PO SCH ×3 (06:39→21:22)
[2021-09-04] MEDS: Apixaban 5 MG TABLET PO SCH ×2 (06:39→21:22)
[2021-09-04] MEDS: amLODIPine 5 MG TABLET PO SCH (06:40)
[2021-09-04] MEDS: carvediloL 6.25 MG TABLET PO SCH ×2 (06:40→16:59)
[2021-09-04] MEDS: Cyanocobalamin (B-12) 1,000 MCG TABLET PO SCH (06:40)
[2021-09-04] MEDS: Insulin DETEMIR 100 UNIT/ML X5UNITS SUBQ SCH ×2 (06:41→21:19)
[2021-09-04] MEDS: Nicotine 14 MG PATCH.TD24 TD SCH (06:41)
[2021-09-04] MEDS: polyethylene glycoL 3350 17 GM POWD.PACK PO SCH (06:41)
[2021-09-04] MEDS: Insulin LISPRO 300 UNITS/3 ML VIAL SUBQ SCH ×4 (06:48→21:21)
[2021-09-04] MEDS: *HR* OxyCODONE/APAP 10/325 TABLET PO PRN ×2 (06:55→21:22)
[2021-09-04] MEDS: *HR* LORazepam 0.5 MG TABLET PO PRN (21:22)
[2021-09-05] MEDS: *HR* OxyCODONE/APAP 10/325 TABLET PO PRN ×3 (05:04→21:51)
[2021-09-05] MEDS: *HR* LORazepam 0.5 MG TABLET PO PRN ×3 (05:04→21:51)
[2021-09-05] MEDS: Gabapentin 100 MG CAPSULE PO SCH ×3 (08:21→21:50)
[2021-09-05] MEDS: amLODIPine 5 MG TABLET PO SCH (08:21)
[2021-09-05] MEDS: Apixaban 5 MG TABLET PO SCH ×2 (08:22→21:51)
[2021-09-05] MEDS: Cyanocobalamin (B-12) 1,000 MCG TABLET PO SCH (08:22)
[2021-09-05] MEDS: Aspirin 81 MG TAB.CHEW PO SCH (08:22)
[2021-09-05] MEDS: carvediloL 6.25 MG TABLET PO SCH ×2 (08:22→16:26)
[2021-09-05] MEDS: Insulin DETEMIR 100 UNIT/ML X5UNITS SUBQ SCH ×2 (08:34→21:52)
[2021-09-05] MEDS: Insulin LISPRO 300 UNITS/3 ML VIAL SUBQ SCH ×4 (08:34→21:52)
[2021-09-05] MEDS: Nicotine 14 MG PATCH.TD24 TD SCH (10:31)
[2021-09-05] MEDS: polyethylene glycoL 3350 17 GM POWD.PACK PO SCH (10:31)
[2021-09-06] MEDS: *HR* OxyCODONE/APAP 10/325 TABLET PO PRN (05:05)
[2021-09-06] MEDS: *HR* LORazepam 0.5 MG TABLET PO PRN ×3 (05:05→21:13)
[2021-09-06 07:10] LABS: Basophils # 0.1 K/mcL (0.0-0.2); Eosinophils # 0.3 K/mcL (0.0-0.6); Eosinophils % 3.9 %; Hematocrit 29.9 % (35.3-44.9); Hemoglobin 9.5 g/dL (11.5-15.4); Immature Granulocytes % 0.8 % (0-4); Lymphocytes # 1.8 K/mcL (0.6-4.6); Lymphocytes % 22.7 %; Mean Corpuscular HGB Conc 31.8 g/dL (31.6-35.5); Mean Corpuscular Volume 94.3 fL (83.0-100.0); Mean Platelet Volume 12.2 fL (9.4-12.4); Monocytes # 0.8 K/mcL (0.0-1.3); Monocytes % 10.4 %; Neutrophils # 4.9 K/mcL (1.6-8.9); Platelet Count 214 K/mcL (140-400); Red Blood Count 3.17 M/mcL (3.82-4.97); Red Cell Distribution Width 14.1 % (11.5-14.5); Segmented Neutrophils % 61.2 %
[2021-09-06 07:38] LABS: Calcium 9.6 mg/dL (8.6-10.3); Potassium 4.6 mEq/L (3.5-5.1)
[2021-09-06] MEDS: Aspirin 81 MG TAB.CHEW PO SCH (09:31)
[2021-09-06] MEDS: amLODIPine 5 MG TABLET PO SCH (09:31)
[2021-09-06] MEDS: Apixaban 5 MG TABLET PO SCH ×2 (09:31→21:13)
[2021-09-06] MEDS: Gabapentin 100 MG CAPSULE PO SCH ×3 (09:32→21:13)
[2021-09-06] MEDS: Insulin LISPRO 300 UNITS/3 ML VIAL SUBQ SCH ×4 (09:32→21:14)
[2021-09-06] MEDS: Insulin DETEMIR 100 UNIT/ML X5UNITS SUBQ SCH ×2 (09:32→21:13)
[2021-09-06] MEDS: carvediloL 6.25 MG TABLET PO SCH ×2 (09:32→15:02)
[2021-09-06] MEDS: Cyanocobalamin (B-12) 1,000 MCG TABLET PO SCH (09:32)
[2021-09-06] MEDS: Nicotine 14 MG PATCH.TD24 TD SCH (09:38)
[2021-09-06] MEDS: polyethylene glycoL 3350 17 GM POWD.PACK PO SCH (09:38)
[2021-09-06] MEDS: *HR* OxyCODONE/APAP 7.5/325 TABLET PO PRN ×2 (15:02→21:13)
[2021-09-07] MEDS: *HR* OxyCODONE/APAP 7.5/325 TABLET PO PRN ×3 (04:10→20:30)
[2021-09-07] MEDS: *HR* LORazepam 0.5 MG TABLET PO PRN ×3 (04:11→20:30)
[2021-09-07] MEDS: amLODIPine 5 MG TABLET PO SCH (08:28)
[2021-09-07] MEDS: Aspirin 81 MG TAB.CHEW PO SCH (08:29)
[2021-09-07] MEDS: Gabapentin 100 MG CAPSULE PO SCH ×3 (08:29→20:31)
[2021-09-07] MEDS: Insulin DETEMIR 100 UNIT/ML X5UNITS SUBQ SCH ×2 (08:29→20:30)
[2021-09-07] MEDS: Nicotine 14 MG PATCH.TD24 TD SCH (08:30)
[2021-09-07] MEDS: Cyanocobalamin (B-12) 1,000 MCG TABLET PO SCH (08:30)
[2021-09-07] MEDS: Apixaban 5 MG TABLET PO SCH ×2 (08:30→20:31)
[2021-09-07] MEDS: carvediloL 6.25 MG TABLET PO SCH ×2 (08:30→16:19)
[2021-09-07] MEDS: polyethylene glycoL 3350 17 GM POWD.PACK PO SCH (08:31)
[2021-09-07] MEDS: Insulin LISPRO 300 UNITS/3 ML VIAL SUBQ SCH ×4 (08:33→20:28)
[2021-09-08] MEDS: *HR* OxyCODONE/APAP 7.5/325 TABLET PO PRN ×3 (06:51→22:56)
[2021-09-08] MEDS: Gabapentin 100 MG CAPSULE PO SCH ×3 (09:04→21:04)
[2021-09-08] MEDS: carvediloL 6.25 MG TABLET PO SCH ×2 (09:05→17:01)
[2021-09-08] MEDS: Aspirin 81 MG TAB.CHEW PO SCH (09:05)
[2021-09-08] MEDS: Apixaban 5 MG TABLET PO SCH ×2 (09:05→21:04)
[2021-09-08] MEDS: amLODIPine 5 MG TABLET PO SCH (09:05)
[2021-09-08] MEDS: Cyanocobalamin (B-12) 1,000 MCG TABLET PO SCH (09:05)
[2021-09-08] MEDS: Nicotine 14 MG PATCH.TD24 TD SCH (09:06)
[2021-09-08] MEDS: Insulin LISPRO 300 UNITS/3 ML VIAL SUBQ SCH ×4 (09:06→21:04)
[2021-09-08] MEDS: polyethylene glycoL 3350 17 GM POWD.PACK PO SCH (09:06)
[2021-09-08] MEDS: *HR* LORazepam 0.5 MG TABLET PO PRN ×2 (09:11→21:04)
[2021-09-08] MEDS: Insulin DETEMIR 100 UNIT/ML X5UNITS SUBQ SCH ×2 (09:11→21:07)
[2021-09-09] MEDS: *HR* OxyCODONE/APAP 7.5/325 TABLET PO PRN ×2 (06:02→19:50)
[2021-09-09] MEDS: *HR* LORazepam 0.5 MG TABLET PO PRN ×2 (06:03→19:48)
[2021-09-09] MEDS: Aspirin 81 MG TAB.CHEW PO SCH (09:21)
[2021-09-09] MEDS: Gabapentin 100 MG CAPSULE PO SCH ×3 (09:21→19:48)
[2021-09-09] MEDS: Insulin DETEMIR 100 UNIT/ML X5UNITS SUBQ SCH ×2 (09:22→19:51)
[2021-09-09] MEDS: Apixaban 5 MG TABLET PO SCH ×2 (09:22→19:49)
[2021-09-09] MEDS: carvediloL 6.25 MG TABLET PO SCH ×2 (09:22→17:12)
[2021-09-09] MEDS: amLODIPine 5 MG TABLET PO SCH (09:22)
[2021-09-09] MEDS: Cyanocobalamin (B-12) 1,000 MCG TABLET PO SCH (09:22)
[2021-09-09] MEDS: Insulin LISPRO 300 UNITS/3 ML VIAL SUBQ SCH ×4 (09:23→19:52)
[2021-09-09] MEDS: Nicotine 14 MG PATCH.TD24 TD SCH (09:23)
[2021-09-09] MEDS: polyethylene glycoL 3350 17 GM POWD.PACK PO SCH (09:23)
[2021-09-10 05:02] LABS: Hematocrit 29.8 % (35.3-44.9); Hemoglobin 9.7 g/dL (11.5-15.4); Mean Corpuscular HGB Conc 32.6 g/dL (31.6-35.5); Mean Corpuscular Volume 92.3 fL (83.0-100.0); Mean Platelet Volume 12.2 fL (9.4-12.4); Platelet Count 198 K/mcL (140-400); Red Blood Count 3.23 M/mcL (3.82-4.97); Red Cell Distribution Width 13.9 % (11.5-14.5); White Blood Count 9.2 K/mcL (4.3-11.1)
[2021-09-10 05:25] LABS: Alanine Aminotransferase 72 Units/L (7-52); Albumin 3.4 g/dL (3.5-5.7); Alkaline Phosphatase 68 Units/L (34-104); Aspartate Amino Transferase 32 Units/L (13-39); BUN/Creatinine Ratio 40 (6-26); Bilirubin,Total 0.2 mg/dL (0.3-1.0); Blood Urea Nitrogen 40 mg/dL (6-20); Calcium 9.5 mg/dL (8.6-10.3); Carbon Dioxide 28 mEq/L (23-29); Chloride 102 mEq/L (98-107); Globulin 3.3 g/dL (2.4-3.5); Glucose 287 mg/dL (70-105); Magnesium 1.8 mg/dL (1.6-2.6); Osmolality,Calculated 304 (280-300); Potassium 4.3 mEq/L (3.5-5.1); Sodium 137 mEq/L (136-145); Total Protein 6.7 g/dL (6.4-8.9); eGFR For African Americans > 60 (> 60); eGFR For Non-African Americans 58 (> 60)
[2021-09-10] MEDS: polyethylene glycoL 3350 17 GM POWD.PACK PO SCH (08:05)
[2021-09-10] MEDS: Nicotine 14 MG PATCH.TD24 TD SCH (08:05)
[2021-09-10] MEDS: Insulin LISPRO 300 UNITS/3 ML VIAL SUBQ SCH ×4 (08:07→19:38)
[2021-09-10] MEDS: Insulin DETEMIR 100 UNIT/ML X5UNITS SUBQ SCH ×2 (08:07→19:38)
[2021-09-10] MEDS: Apixaban 5 MG TABLET PO SCH ×2 (08:09→19:38)
[2021-09-10] MEDS: Aspirin 81 MG TAB.CHEW PO SCH (08:09)
[2021-09-10] MEDS: Gabapentin 100 MG CAPSULE PO SCH ×3 (08:10→19:35)
[2021-09-10] MEDS: carvediloL 6.25 MG TABLET PO SCH ×2 (08:10→16:54)
[2021-09-10] MEDS: Cyanocobalamin (B-12) 1,000 MCG TABLET PO SCH (08:11)
[2021-09-10] MEDS: amLODIPine 5 MG TABLET PO SCH (08:11)
[2021-09-10] MEDS: *HR* OxyCODONE/APAP 7.5/325 TABLET PO PRN ×2 (08:14→16:55)
[2021-09-10] MEDS: *HR* LORazepam 0.5 MG TABLET PO PRN ×2 (08:14→16:55)
[2021-09-10] MEDS: lisinopriL 10 MG TABLET PO SCH (10:31)
[2021-09-11] MEDS: polyethylene glycoL 3350 17 GM POWD.PACK PO SCH (07:52)
[2021-09-11] MEDS: Nicotine 14 MG PATCH.TD24 TD SCH (07:52)
[2021-09-11] MEDS: Aspirin 81 MG TAB.CHEW PO SCH (08:32)
[2021-09-11] MEDS: Gabapentin 100 MG CAPSULE PO SCH ×3 (08:32→20:19)
[2021-09-11] MEDS: Apixaban 5 MG TABLET PO SCH ×2 (08:32→20:20)
[2021-09-11] MEDS: carvediloL 6.25 MG TABLET PO SCH ×2 (08:33→16:39)
[2021-09-11] MEDS: Insulin LISPRO 300 UNITS/3 ML VIAL SUBQ SCH ×3 (08:33→16:39)
[2021-09-11] MEDS: amLODIPine 5 MG TABLET PO SCH (08:33)
[2021-09-11] MEDS: lisinopriL 10 MG TABLET PO SCH (08:33)
[2021-09-11] MEDS: Cyanocobalamin (B-12) 1,000 MCG TABLET PO SCH (08:33)
[2021-09-11] MEDS: *HR* OxyCODONE/APAP 7.5/325 TABLET PO PRN ×2 (08:46→16:55)
[2021-09-11] MEDS: Insulin DETEMIR 100 UNIT/ML X5UNITS SUBQ SCH ×2 (09:28→20:20)
[2021-09-11] MEDS: *HR* LORazepam 0.5 MG TABLET PO PRN (11:33)
[2021-09-11 19:15] VITALS: BP 150/80; PULSE 71; RESP 16; TEMP 97.8; O2SAT 97
== END 2021-09-11 20:30 | disposition home health service (06) | DRG 872 ==
LOC: INPGRE 19:37
PROVIDERS: ADMIT Family Medicine; ATTEND Family Medicine